=== PATIENT | female | born 1955 | race Caucasian/White ===

== ENCOUNTER 2021-06-19 16:41 | Inpatient (IN) ==
[2021-06-19] MEDS ORDERED: Pantoprazole 40 MG VIAL IVP ONE (18:24)
[2021-06-19 18:30] LABS: Hematocrit 29.8 % (35.3-44.9); Hemoglobin 10.1 g/dL (11.5-15.4); Mean Corpuscular HGB Conc 33.9 g/dL (31.6-35.5); Mean Corpuscular Hemoglobin 34.9 pg (28.0-33.3); Mean Corpuscular Volume 103.1 fL (83.0-100.0); Mean Platelet Volume 10.9 fL (9.4-12.4); Platelet Count 171 K/mcL (140-400); Red Blood Count 2.89 M/mcL (3.82-4.97); Red Cell Distribution Width 15.3 % (11.5-14.5); White Blood Count 14.5 K/mcL (4.3-11.1)
[2021-06-19] MEDS ORDERED: Morphine Sulfate 2 MG/ML SYRINGE IVP ONE (18:37)
[2021-06-19] MEDS ORDERED: 0.9 % Sodium Chloride 1,000 ML IVC SCH (18:45)
[2021-06-19 18:50] LABS: Alanine Aminotransferase 30 Units/L (7-52); Albumin 2.8 g/dL (3.5-5.7); Albumin/Globulin Ratio 0.9 (1.1-2.2); Alkaline Phosphatase 61 Units/L (34-104); Aspartate Amino Transferase 38 Units/L (13-39); BUN/Creatinine Ratio 51 (6-26); Bilirubin,Direct 0.3 mg/dL (0.0-0.2); Bilirubin,Indirect 0.8 mg/dL (0.0-1.0); Bilirubin,Total 1.1 mg/dL (0.3-1.0); Blood Urea Nitrogen 43 mg/dL (8-23); Calcium 8.7 mg/dL (8.6-10.3); Carbon Dioxide 24 mEq/L (23-29); Chloride 105 mEq/L (98-107); Globulin 3.2 g/dL (2.4-3.5); Glucose 127 mg/dL (70-105); Lipase 23 Units/L (11-82); Osmolality,Calculated 294 (280-300); Potassium 4.4 mEq/L (3.5-5.1); Sodium 136 mEq/L (136-145); eGFR For African Americans > 60 (> 60); eGFR For Non-African Americans > 60 (> 60)
[2021-06-19 19:09] LABS: Prothrombin Time 21.8 Seconds (9.4-12.1)
[2021-06-19] MEDS ORDERED: cefTRIAXone 1,000 MG in Water for inj. (sterile) 10 ML IVP ONE (19:21)
[2021-06-19] MEDS ORDERED: *HR* Phytonadione 5 MG TABLET PO ONE (19:26)
[2021-06-19] MEDS ORDERED: 0.9 % Sodium Chloride 1,000 ML IVC ONE (19:33)
[2021-06-19] MEDS ORDERED: Acetaminophen 325 MG TABLET PO PRN (19:49)
[2021-06-19] MEDS ORDERED: Naloxone 0.4 MG/ML INJ IVP PRN (19:49)
[2021-06-19] MEDS ORDERED: *HR* HYDROcodone/Acet 5/325 mg TABLET PO PRN (19:49)
[2021-06-19] MEDS ORDERED: Melatonin 3 MG TABLET PO PRN (19:49)
[2021-06-19] MEDS ORDERED: Ondansetron 4 MG/2 ML VIAL IVP PRN (19:49)
[2021-06-19] MEDS ORDERED: Ringers Solution, Lactated 1,000 ML IVC ONE (19:55)
[2021-06-19] MEDS: Octreotide 400 MCG in 0.9 % Sodium Chloride 100 ML IVC SCH (21:23)
[2021-06-19] MEDS: Pantoprazole 40 MG in 0.9 % Sodium Chloride Mini Bag 100 ML IVC SCH (22:33)
[2021-06-19] MEDS ORDERED: 0.9 % Sodium Chloride 1,000 ML ONE (23:52)
[2021-06-20] MEDS ORDERED: Ringers Solution, Lactated 1,000 ML IVC ONE (00:02)
[2021-06-20 02:02] LABS: Basophils % 0.1 %; Eosinophils % 0.1 %; Hematocrit 21.7 % (35.3-44.9); Immature Granulocytes % 0.9 % (0-4); Lymphocytes # 1.7 K/mcL (0.6-4.6); Lymphocytes % 11.4 %; Mean Corpuscular HGB Conc 31.3 g/dL (31.6-35.5); Mean Corpuscular Volume 108.5 fL (83.0-100.0); Mean Platelet Volume 11.9 fL (9.4-12.4); Monocytes # 1.7 K/mcL (0.0-1.3); Monocytes % 11.7 %; Neutrophils # 11.3 K/mcL (1.6-8.9); Nucleated Red Blood Cells 0.1 /100 WBC (0); Platelet Count 132 K/mcL (140-400); Red Cell Distribution Width 15.9 % (11.5-14.5); Segmented Neutrophils % 75.8 %; White Blood Count 14.8 K/mcL (4.3-11.1)
[2021-06-20 02:07] LABS: INR 2.2
[2021-06-20 02:18] LABS: Hemoglobin 6.8 g/dL (11.5-15.4)
[2021-06-20 02:26] LABS: Alanine Aminotransferase 24 Units/L (7-52); Albumin 1.9 g/dL (3.5-5.7); Albumin/Globulin Ratio 0.8 (1.1-2.2); Alkaline Phosphatase 35 Units/L (34-104); Aspartate Amino Transferase 34 Units/L (13-39); BUN/Creatinine Ratio 54 (6-26); Bilirubin,Total 0.8 mg/dL (0.3-1.0); Blood Urea Nitrogen 43 mg/dL (8-23); Calcium 7.3 mg/dL (8.6-10.3); Carbon Dioxide 19 mEq/L (23-29); Chloride 113 mEq/L (98-107); Globulin 2.3 g/dL (2.4-3.5); Glucose 112 mg/dL (70-105); Iron 88 mcg/dL (50-170); Osmolality,Calculated 298 (280-300); Potassium 5.3 mEq/L (3.5-5.1); Sodium 138 mEq/L (136-145); Total Protein 4.2 g/dL (6.4-8.9); eGFR For African Americans > 60 (> 60); eGFR For Non-African Americans > 60 (> 60)
[2021-06-20] MEDS ORDERED: 0.9 % Sodium Chloride 250 ML IVC SCH (02:30)
[2021-06-20 02:33] LABS: Ferritin 45 ng/mL (10-120)
[2021-06-20 02:54] LABS: Folate 10.6 ng/mL (3.0-16.0)
[2021-06-20] MEDS ORDERED: Ringers Solution, Lactated 500 ML IVC ONE (03:00)
[2021-06-20] MEDS ORDERED: *HR* Dextrose 50 % in Water (Syg) 50 ML SYRINGE IVP ONE (03:44)
[2021-06-20] MEDS ORDERED: Insulin Human Regular 10 UNIT in 0.9 % Sodium Chloride 10 ML IV ONE (03:44)
[2021-06-20 04:11] LABS: % Iron Saturation 35 % (15-50); Transferrin 179 mg/dL (203-362)
[2021-06-20] MEDS ORDERED: 0.9 % Sodium Chloride 1,000 ML ONE (04:13)
[2021-06-20] MEDS ORDERED: 0.9 % Sodium Chloride 1,000 ML IVC ONE (04:14)
[2021-06-20] MEDS: Norepinephrine 4 MG/254 ML IV.SOLN IVC SCH ×4 (04:27→23:18)
[2021-06-20] MEDS ORDERED: *HR* Propofol 200 MG/20 ML VIAL IVP ONE (06:14)
[2021-06-20] MEDS ORDERED: EPHEDrine 50 MG/ML VIAL ONE (06:16)
[2021-06-20] MEDS ORDERED: Albumin Human 5% 25.0 GM/500 ML IV.SOLN ONE (06:45)
[2021-06-20] MEDS ORDERED: *HR* Midazolam HCl 2 MG/2 ML VIAL IVP ONE (07:25)
[2021-06-20] MEDS ORDERED: Levalbuterol Neb 1.25 MG/3 ML IH ONE (07:28)
[2021-06-20] MEDS ORDERED: *HR* FentaNYL (PF) 100 MCG/2 ML VIAL IVP PRN (07:29)
[2021-06-20] MEDS ORDERED: Ipratropium Neb 0.5 MG NEBULIZER IH ONE (07:30)
[2021-06-20] MEDS ORDERED: *HR* FentaNYL (PF) 100 MCG/2 ML VIAL ONE (07:30)
[2021-06-20] MEDS ORDERED: Heparin 1,000 UNITS/500 mL 500 ML ONE (07:35)
[2021-06-20 07:42] LABS: ABG Base Excess -7 mEq/L (-2 to 3); ABG HCO3 19 mEq/L (21-27); ABG Oxygen Saturation 87 % (95-98); ABG PCO2 41 mmHg (35-45); ABG PH 7.28 pH Units (7.32-7.45); ABG PO2 59 mmHg (85-104); ABG TCO2 20 mEq/L (20-26)
[2021-06-20] MEDS ORDERED: Albumin Human 5% 12.5 GM/250 ML IV.SOLN ONE (07:48)
[2021-06-20] MEDS ORDERED: *HR* Etomidate 40 MG/20 ML VIAL IVP ONE (07:48)
[2021-06-20] MEDS ORDERED: *HR* Succinylcholine 200 MG/10 ML VIAL IVP ONE (07:48)
[2021-06-20] MEDS ORDERED: Ringers Solution, Lactated 1,000 ML ONE (08:13)
[2021-06-20 08:22] LABS: BUN/Creatinine Ratio 53 (6-26); Blood Urea Nitrogen 41 mg/dL (8-23); Calcium 7.1 mg/dL (8.6-10.3); Carbon Dioxide 20 mEq/L (23-29); Chloride 113 mEq/L (98-107); Glucose 143 mg/dL (70-105); Osmolality,Calculated 301 (280-300); Potassium 4.4 mEq/L (3.5-5.1); Sodium 139 mEq/L (136-145); eGFR For African Americans > 60 (> 60); eGFR For Non-African Americans > 60 (> 60)
[2021-06-20 08:37] LABS: ABG Base Excess -5 mEq/L (-2 to 3); ABG HCO3 22 mEq/L (21-27); ABG Oxygen Saturation 100 % (95-98); ABG PCO2 52 mmHg (35-45); ABG PH 7.24 pH Units (7.32-7.45); ABG PO2 387 mmHg (85-104); ABG TCO2 24 mEq/L (20-26)
[2021-06-20] MEDS ORDERED: Artificial Tears SOLN 15 ML BOTTLE BOTH EYES PRN (08:48)
[2021-06-20 09:03] LABS: Basophils % 0.2 %; Immature Granulocytes % 1.6 % (0-4); Nucleated Red Blood Cells 0.3 /100 WBC (0); Platelet Count 123 K/mcL (140-400)
[2021-06-20 09:05] LABS: Eosinophils % 0.2 %; Hematocrit 21.3 % (35.3-44.9); Hemoglobin 7.3 g/dL (11.5-15.4); Immature Platelets 6.4 % (1.1-6.1); Lymphocytes # 1.9 K/mcL (0.6-4.6); Lymphocytes % 9.9 %; Mean Corpuscular HGB Conc 34.3 g/dL (31.6-35.5); Mean Corpuscular Volume 99.1 fL (83.0-100.0); Mean Platelet Volume 11.9 fL (9.4-12.4); Monocytes # 2.5 K/mcL (0.0-1.3); Monocytes % 13.3 %; Neutrophils # 14.1 K/mcL (1.6-8.9); Red Blood Count 2.15 M/mcL (3.82-4.97); Red Cell Distribution Width 15.8 % (11.5-14.5); Segmented Neutrophils % 74.8 %; White Blood Count 18.8 K/mcL (4.3-11.1)
[2021-06-20 09:21] LABS: Alanine Aminotransferase 28 Units/L (7-52); Albumin 2.6 g/dL (3.5-5.7); Albumin/Globulin Ratio 1.2 (1.1-2.2); Alkaline Phosphatase 42 Units/L (34-104); Aspartate Amino Transferase 40 Units/L (13-39); Bilirubin,Direct 0.2 mg/dL (0.0-0.2); Bilirubin,Indirect 0.6 mg/dL (0.0-1.0); Bilirubin,Total 0.8 mg/dL (0.3-1.0); Globulin 2.1 g/dL (2.4-3.5); Total Protein 4.7 g/dL (6.4-8.9)
[2021-06-20] MEDS: Ipratropium/Albuterol Neb 3 ML IH PRN (10:09)
[2021-06-20] MEDS ORDERED: FentaNYL (PF) 1,000 MCG/100 ML IV.SOLN IVC SCH (10:15)
[2021-06-20] MEDS: Pantoprazole 40 MG in 0.9 % Sodium Chloride Mini Bag 100 ML IVC SCH ×4 (10:42→19:39)
[2021-06-20] MEDS: Octreotide 400 MCG in 0.9 % Sodium Chloride 100 ML IVC SCH ×2 (10:49→17:00)
[2021-06-20] MEDS: cefTRIAXone 1,000 MG in 0.9 % Sodium Chloride Mini Bag 100 ML IVP SCH (11:45)
[2021-06-20] MEDS: Chlorhexidine Rinse 15 ML MOUTHWASH MM SCH ×2 (11:52→19:39)
[2021-06-20] MEDS ORDERED: Dexmedetomidine HCl 400 MCG/100 ML MLS IVC SCH (13:45)
[2021-06-20 14:58] LABS: Hematocrit 19.5 % (35.3-44.9); Hemoglobin 6.6 g/dL (11.5-15.4)
[2021-06-20] MEDS: Artificial Tears SOLN 15 ML BOTTLE BOTH EYES SCH ×3 (15:25→21:47)
[2021-06-20] MEDS: Albumin Human 5% 12.5 GM/250 ML IV.SOLN IVC SCH ×2 (16:55→21:37)
[2021-06-20] MEDS: Dexmedetomidine HCl 400 MCG/100 ML MLS IVC SCH ×3 (18:20→23:44)
[2021-06-20 20:50] LABS: Hematocrit 24.8 % (35.3-44.9)
[2021-06-20 20:51] LABS: Hemoglobin 8.2 g/dL (11.5-15.4)
[2021-06-20 20:53] LABS: VBG Ionized Calcium 1.12 mmol/L (1.15-1.35)
[2021-06-20 21:11] LABS: BUN/Creatinine Ratio 42 (6-26); Blood Urea Nitrogen 33 mg/dL (8-23); Calcium 7.4 mg/dL (8.6-10.3); Carbon Dioxide 26 mEq/L (23-29); Chloride 113 mEq/L (98-107); Glucose 150 mg/dL (70-105); Magnesium 1.5 mg/dL (1.6-2.6); Osmolality,Calculated 306 (280-300); Phosphorous 1.9 mg/dL (2.7-4.5); Potassium 4.5 mEq/L (3.5-5.1); Sodium 143 mEq/L (136-145); eGFR For African Americans > 60 (> 60); eGFR For Non-African Americans > 60 (> 60)
[2021-06-21] MEDS: Pantoprazole 40 MG in 0.9 % Sodium Chloride Mini Bag 100 ML IVC SCH ×5 (00:50→22:09)
[2021-06-21] MEDS: Octreotide 400 MCG in 0.9 % Sodium Chloride 100 ML IVC SCH ×3 (00:51→18:16)
[2021-06-21] MEDS: Artificial Tears SOLN 15 ML BOTTLE BOTH EYES SCH ×7 (00:52→23:13)
[2021-06-21] MEDS: Norepinephrine 4 MG/254 ML IV.SOLN IVC SCH ×8 (01:51→22:08)
[2021-06-21 02:19] LABS: VBG Ionized Calcium 1.09 mmol/L (1.15-1.35)
[2021-06-21 02:35] LABS: BUN/Creatinine Ratio 38 (6-26); Blood Urea Nitrogen 29 mg/dL (8-23); Calcium 7.4 mg/dL (8.6-10.3); Carbon Dioxide 23 mEq/L (23-29); Chloride 114 mEq/L (98-107); Glucose 149 mg/dL (70-105); Osmolality,Calculated 303 (280-300); Phosphorous 2.7 mg/dL (2.7-4.5); Potassium 3.9 mEq/L (3.5-5.1); Sodium 142 mEq/L (136-145); eGFR For African Americans > 60 (> 60); eGFR For Non-African Americans > 60 (> 60)
[2021-06-21 02:42] LABS: Basophils # 0.1 K/mcL (0.0-0.2); Basophils % 0.4 %; Eosinophils # 0.3 K/mcL (0.0-0.6); Eosinophils % 1.2 %; Hematocrit 24.3 % (35.3-44.9); Hemoglobin 8.1 g/dL (11.5-15.4); Lymphocytes # 2.2 K/mcL (0.6-4.6); Lymphocytes % 9.7 %; Mean Corpuscular HGB Conc 33.3 g/dL (31.6-35.5); Mean Corpuscular Hemoglobin 33.9 pg (28.0-33.3); Mean Corpuscular Volume 101.7 fL (83.0-100.0); Monocytes # 2.4 K/mcL (0.0-1.3); Monocytes % 10.4 %; Neutrophils # 17.7 K/mcL (1.6-8.9); Nucleated Red Blood Cells 0.2 /100 WBC (0); Platelet Count 158 K/mcL (140-400); Red Blood Count 2.39 M/mcL (3.82-4.97); Red Cell Distribution Width 15.9 % (11.5-14.5); Segmented Neutrophils % 77.3 %
[2021-06-21] MEDS: Calcium Gluconate 1gm/50mL 1 GM/50 ML BAG IVPB SCH ×2 (03:08→03:36)
[2021-06-21] MEDS: Albumin Human 5% 12.5 GM/250 ML IV.SOLN IVC SCH ×4 (04:53→12:40)
[2021-06-21] MEDS: Dexmedetomidine HCl 400 MCG/100 ML MLS IVC SCH ×4 (04:53→23:47)
[2021-06-21] MEDS ORDERED: Lactulose 200 GM, Sodium Chloride IRRigation 700 ML RC ONE (06:30)
[2021-06-21] MEDS: Chlorhexidine Rinse 15 ML MOUTHWASH MM SCH ×2 (09:31→21:39)
[2021-06-21] MEDS: cefTRIAXone 1,000 MG in 0.9 % Sodium Chloride Mini Bag 100 ML IVP SCH (09:32)
[2021-06-21] MEDS ORDERED: Norepinephrine 4 MG/254 ML IV.SOLN IVC ONE (10:15)
[2021-06-21] MEDS ORDERED: FentaNYL (PF) 1,000 MCG/100 ML IV.SOLN ONE (10:15)
[2021-06-21] MEDS: FentaNYL (PF) 1,000 MCG/100 ML IV.SOLN IVC SCH ×2 (11:16→18:46)
[2021-06-21] MEDS: Phenylephrine 50 MG in 0.9 % Sodium Chloride 250 ML IVC SCH (11:26)
[2021-06-21 11:29] LABS: ABG Base Excess -2 mEq/L (-2 to 3); ABG HCO3 25 mEq/L (21-27); ABG Oxygen Saturation 100 % (95-98); ABG PCO2 49 mmHg (35-45); ABG PH 7.31 pH Units (7.32-7.45); ABG PO2 184 mmHg (85-104); ABG TCO2 26 mEq/L (20-26); Blood Gas Modality ASSIST CONTROL; Blood Gas VT 400 cc
[2021-06-21 14:47] LABS: Hematocrit 22.5 % (35.3-44.9); Hemoglobin 7.5 g/dL (11.5-15.4); Mean Corpuscular HGB Conc 33.3 g/dL (31.6-35.5); Mean Corpuscular Hemoglobin 34.2 pg (28.0-33.3); Mean Corpuscular Volume 102.7 fL (83.0-100.0); Mean Platelet Volume 10.9 fL (9.4-12.4); Nucleated Red Blood Cells 0.4 /100 WBC (0); Platelet Count 113 K/mcL (140-400); Red Blood Count 2.19 M/mcL (3.82-4.97); Red Cell Distribution Width 16.4 % (11.5-14.5); White Blood Count 24.9 K/mcL (4.3-11.1)
[2021-06-21 15:33] LABS: Neutrophils # 18.9 K/mcL (1.6-8.9); Platelet Estimate Decreased (Normal)
[2021-06-21] MEDS ORDERED: 0.9 % Sodium Chloride 500 ML ONE (15:44)
[2021-06-21] MEDS ORDERED: Acetaminophen IV 1,000 MG/100 ML BAG IVPB ONE (19:39)
[2021-06-21] MEDS: Piperacillin/Tazobactam 3.375 GM in 0.9 % Sodium Chloride Mini Bag 100 ML IVPB SCH ×2 (19:55→23:39)
[2021-06-21 20:17] LABS: Basophils % 0.2 %; Eosinophils # 0.2 K/mcL (0.0-0.6); Eosinophils % 0.8 %; Hemoglobin 7.3 g/dL (11.5-15.4); Immature Granulocytes % 0.6 % (0-4); Lymphocytes % 10.2 %; Mean Corpuscular HGB Conc 33.2 g/dL (31.6-35.5); Mean Corpuscular Volume 102.3 fL (83.0-100.0); Mean Platelet Volume 11.1 fL (9.4-12.4); Monocytes # 2.4 K/mcL (0.0-1.3); Monocytes % 12.2 %; Neutrophils # 14.9 K/mcL (1.6-8.9); Nucleated Red Blood Cells 0.4 /100 WBC (0); Platelet Count 101 K/mcL (140-400); Red Blood Count 2.15 M/mcL (3.82-4.97); Red Cell Distribution Width 16.6 % (11.5-14.5); White Blood Count 19.6 K/mcL (4.3-11.1)
[2021-06-21] MEDS ORDERED: *HR* Etomidate 20 MG/10 ML AMPUL IVP ONE (20:45)
[2021-06-21] MEDS ORDERED: *HR* Rocuronium Bromide 50 MG/5 ML VIAL IVP ONE (20:45)
[2021-06-21] MEDS ORDERED: *HR* Midazolam HCl 5 MG/5 ML VIAL IVP ONE (20:45)
[2021-06-22] MEDS: Norepinephrine 4 MG/254 ML IV.SOLN IVC SCH ×6 (00:18→19:22)
[2021-06-22] MEDS: FentaNYL (PF) 1,000 MCG/100 ML IV.SOLN IVC SCH ×4 (01:57→22:15)
[2021-06-22] MEDS: Octreotide 400 MCG in 0.9 % Sodium Chloride 100 ML IVC SCH ×3 (02:00→19:19)
[2021-06-22 02:34] LABS: Basophils % 0.2 %; Eosinophils # 0.1 K/mcL (0.0-0.6); Eosinophils % 0.6 %; Hematocrit 22.1 % (35.3-44.9); Hemoglobin 7.2 g/dL (11.5-15.4); Immature Granulocytes % 0.4 % (0-4); Lymphocytes # 1.5 K/mcL (0.6-4.6); Lymphocytes % 9.4 %; Mean Corpuscular HGB Conc 32.6 g/dL (31.6-35.5); Mean Corpuscular Hemoglobin 34.6 pg (28.0-33.3); Mean Corpuscular Volume 106.3 fL (83.0-100.0); Monocytes # 2.3 K/mcL (0.0-1.3); Monocytes % 14.1 %; Neutrophils # 12.1 K/mcL (1.6-8.9); Nucleated Red Blood Cells 0.2 /100 WBC (0); Platelet Count 104 K/mcL (140-400); Red Blood Count 2.08 M/mcL (3.82-4.97); Red Cell Distribution Width 16.9 % (11.5-14.5); Segmented Neutrophils % 75.3 %
[2021-06-22 02:49] LABS: Alanine Aminotransferase 32 Units/L (7-52); Albumin 2.9 g/dL (3.5-5.7); Albumin/Globulin Ratio 1.5 (1.1-2.2); Alkaline Phosphatase 42 Units/L (34-104); Aspartate Amino Transferase 55 Units/L (13-39); BUN/Creatinine Ratio 30 (6-26); Blood Urea Nitrogen 30 mg/dL (8-23); Carbon Dioxide 21 mEq/L (23-29); Chloride 120 mEq/L (98-107); Globulin 1.9 g/dL (2.4-3.5); Glucose 150 mg/dL (70-105); Osmolality,Calculated 311 (280-300); Phosphorous 2.4 mg/dL (2.7-4.5); Potassium 3.5 mEq/L (3.5-5.1); Sodium 146 mEq/L (136-145); Total Protein 4.8 g/dL (6.4-8.9); eGFR For African Americans > 60 (> 60); eGFR For Non-African Americans 55 (> 60)
[2021-06-22] MEDS: Artificial Tears SOLN 15 ML BOTTLE BOTH EYES SCH ×6 (03:04→23:07)
[2021-06-22] MEDS: Pantoprazole 40 MG in 0.9 % Sodium Chloride Mini Bag 100 ML IVC SCH ×5 (03:04→23:11)
[2021-06-22] MEDS: Dexmedetomidine HCl 400 MCG/100 ML MLS IVC SCH ×5 (04:00→21:00)
[2021-06-22 05:18] LABS: ABG Base Excess -5 mEq/L (-2 to 3); ABG HCO3 19 mEq/L (21-27); ABG Oxygen Saturation 96 % (95-98); ABG PCO2 29 mmHg (35-45); ABG PH 7.42 pH Units (7.32-7.45); ABG PO2 78 mmHg (85-104); ABG TCO2 20 mEq/L (20-26); Blood Gas VT 400 cc
[2021-06-22] MEDS ORDERED: Lactulose 200 GM, Sodium Chloride IRRigation 700 ML RC ONE (05:30)
[2021-06-22] MEDS: Chlorhexidine Rinse 15 ML MOUTHWASH MM SCH ×2 (08:03→20:04)
[2021-06-22] MEDS: Piperacillin/Tazobactam 3.375 GM in 0.9 % Sodium Chloride Mini Bag 100 ML IVPB SCH ×3 (08:03→23:07)
[2021-06-22 10:10] LABS: Hematocrit 22.2 % (35.3-44.9); Hemoglobin 7.3 g/dL (11.5-15.4); Mean Corpuscular HGB Conc 32.9 g/dL (31.6-35.5); Mean Corpuscular Hemoglobin 34.4 pg (28.0-33.3); Mean Corpuscular Volume 104.7 fL (83.0-100.0); Mean Platelet Volume 10.8 fL (9.4-12.4); Platelet Count 102 K/mcL (140-400); Red Blood Count 2.12 M/mcL (3.82-4.97); Red Cell Distribution Width 17.2 % (11.5-14.5); White Blood Count 15.4 K/mcL (4.3-11.1)
[2021-06-22 10:48] LABS: Lymphocytes # 1.5 K/mcL (0.6-4.6); Monocytes # 0.9 K/mcL (0.0-1.3); Neutrophils # 12.6 K/mcL (1.6-8.9); Platelet Estimate Slight Decrease (Normal)
[2021-06-22] MEDS: Levothyroxine Sodium 100 MCG VIAL IVP SCH (11:45)
[2021-06-22] MEDS: Ipratropium/Albuterol Neb 3 ML IH SCH ×3 (12:05→21:11)
[2021-06-22] MEDS: D5% in Water 1,000 ML IVC SCH ×2 (14:37→19:29)
[2021-06-22] MEDS: Albumin 25% 25gram/100mL 25 GM/100 ML IV.SOLN IVPB SCH ×2 (15:54→23:06)
[2021-06-22] MEDS: Phenylephrine 50 MG in 0.9 % Sodium Chloride 250 ML IVC SCH (19:17)
[2021-06-23] MEDS: D5% in Water 1,000 ML IVC SCH ×3 (00:36→20:55)
[2021-06-23] MEDS: Dexmedetomidine HCl 400 MCG/100 ML MLS IVC SCH ×6 (00:37→22:07)
[2021-06-23] MEDS: Octreotide 400 MCG in 0.9 % Sodium Chloride 100 ML IVC SCH (01:05)
[2021-06-23] MEDS: Artificial Tears SOLN 15 ML BOTTLE BOTH EYES SCH ×5 (03:13→20:55)
[2021-06-23] MEDS: Norepinephrine 4 MG/254 ML IV.SOLN IVC SCH ×3 (03:29→18:43)
[2021-06-23 03:31] LABS: VBG Ionized Calcium 1.05 mmol/L (1.15-1.35)
[2021-06-23 03:45] LABS: Alanine Aminotransferase 26 Units/L (7-52); Albumin 3.3 g/dL (3.5-5.7); Albumin/Globulin Ratio 1.7 (1.1-2.2); Alkaline Phosphatase 41 Units/L (34-104); Aspartate Amino Transferase 34 Units/L (13-39); BUN/Creatinine Ratio 38 (6-26); Bilirubin,Direct 0.6 mg/dL (0.0-0.2); Bilirubin,Indirect 0.6 mg/dL (0.0-1.0); Bilirubin,Total 1.2 mg/dL (0.3-1.0); Blood Urea Nitrogen 29 mg/dL (8-23); Calcium 6.6 mg/dL (8.6-10.3); Carbon Dioxide 19 mEq/L (23-29); Chloride 116 mEq/L (98-107); Globulin 1.9 g/dL (2.4-3.5); Glucose 221 mg/dL (70-105); Osmolality,Calculated 305 (280-300); Phosphorous 1.8 mg/dL (2.7-4.5); Potassium 3.7 mEq/L (3.5-5.1); Sodium 141 mEq/L (136-145); Total Protein 5.2 g/dL (6.4-8.9); eGFR For African Americans > 60 (> 60); eGFR For Non-African Americans > 60 (> 60)
[2021-06-23] MEDS: Calcium Gluconate 1gm/50mL 1 GM/50 ML BAG IVPB SCH ×2 (04:00→04:36)
[2021-06-23] MEDS: Pantoprazole 40 MG in 0.9 % Sodium Chloride Mini Bag 100 ML IVC SCH ×5 (04:02→22:42)
[2021-06-23] MEDS: FentaNYL (PF) 1,000 MCG/100 ML IV.SOLN IVC SCH ×4 (04:06→22:41)
[2021-06-23] MEDS: Ipratropium/Albuterol Neb 3 ML IH SCH ×4 (04:40→20:07)
[2021-06-23 05:12] LABS: ABG Base Excess -8 mEq/L (-2 to 3); ABG HCO3 19 mEq/L (21-27); ABG Oxygen Saturation 90 % (95-98); ABG PCO2 50 mmHg (35-45); ABG PH 7.19 pH Units (7.32-7.45); ABG PO2 72 mmHg (85-104); ABG TCO2 21 mEq/L (20-26); Blood Gas Modality ASSIST CONTROL; Blood Gas VT 400 cc
[2021-06-23 06:36] LABS: Red Cell Distribution Width 18.2 % (11.5-14.5)
[2021-06-23 06:38] LABS: Basophils % 0.1 %; Eosinophils # 0.1 K/mcL (0.0-0.6); Eosinophils % 0.6 %; Hematocrit 21.9 % (35.3-44.9); Hemoglobin 6.9 g/dL (11.5-15.4); Immature Granulocytes % 0.6 % (0-4); Immature Platelets 10.5 % (1.1-6.1); Lymphocytes # 1.2 K/mcL (0.6-4.6); Lymphocytes % 8.4 %; Mean Corpuscular HGB Conc 31.5 g/dL (31.6-35.5); Mean Corpuscular Hemoglobin 35.2 pg (28.0-33.3); Mean Corpuscular Volume 111.7 fL (83.0-100.0); Mean Platelet Volume 12.1 fL (9.4-12.4); Monocytes # 1.2 K/mcL (0.0-1.3); Monocytes % 8.3 %; Neutrophils # 11.8 K/mcL (1.6-8.9); Nucleated Red Blood Cells 0.2 /100 WBC (0); Red Blood Count 1.96 M/mcL (3.82-4.97); White Blood Count 14.4 K/mcL (4.3-11.1)
[2021-06-23 06:47] LABS: Platelet Count 98 K/mcL (140-400)
[2021-06-23 07:36] LABS: ABG Base Excess -7 mEq/L (-2 to 3); ABG HCO3 20 mEq/L (21-27); ABG Oxygen Saturation 93 % (95-98); ABG PCO2 48 mmHg (35-45); ABG PH 7.22 pH Units (7.32-7.45); ABG PO2 79 mmHg (85-104); ABG TCO2 21 mEq/L (20-26); Blood Gas VT 400 cc
[2021-06-23] MEDS: Levothyroxine Sodium 100 MCG VIAL IVP SCH (07:38)
[2021-06-23] MEDS: Chlorhexidine Rinse 15 ML MOUTHWASH MM SCH ×2 (07:38→20:54)
[2021-06-23] MEDS: Piperacillin/Tazobactam 3.375 GM in 0.9 % Sodium Chloride Mini Bag 100 ML IVPB SCH ×2 (07:39→15:04)
[2021-06-23] MEDS: Albumin 25% 25gram/100mL 25 GM/100 ML IV.SOLN IVPB SCH ×2 (07:40→15:05)
[2021-06-23] MEDS: Phenylephrine 50 MG in 0.9 % Sodium Chloride 250 ML IVC SCH (11:47)
[2021-06-23 16:11] LABS: Hematocrit 21.7 % (35.3-44.9); Hemoglobin 7.1 g/dL (11.5-15.4)
[2021-06-23 21:14] LABS: Hematocrit 21.9 % (35.3-44.9); Hemoglobin 6.9 g/dL (11.5-15.4)
[2021-06-23] MEDS ORDERED: 0.9 % Sodium Chloride 250 ML IVC SCH (22:00)
[2021-06-24] MEDS: Piperacillin/Tazobactam 3.375 GM in 0.9 % Sodium Chloride Mini Bag 100 ML IVPB SCH ×3 (00:25→15:49)
[2021-06-24] MEDS: Artificial Tears SOLN 15 ML BOTTLE BOTH EYES SCH ×6 (00:25→21:58)
[2021-06-24] MEDS: Dexmedetomidine HCl 400 MCG/100 ML MLS IVC SCH ×5 (02:24→21:46)
[2021-06-24] MEDS: Albumin 25% 25gram/100mL 25 GM/100 ML IV.SOLN IVPB SCH ×2 (02:28→08:51)
[2021-06-24] MEDS: Ipratropium/Albuterol Neb 3 ML IH SCH ×4 (03:28→20:11)
[2021-06-24] MEDS: FentaNYL (PF) 1,000 MCG/100 ML IV.SOLN IVC SCH ×4 (03:30→23:37)
[2021-06-24 04:00] LABS: Hemoglobin 7.8 g/dL (11.5-15.4); Mean Platelet Volume 10.8 fL (9.4-12.4)
[2021-06-24] MEDS: Pantoprazole 40 MG in 0.9 % Sodium Chloride Mini Bag 100 ML IVC SCH ×2 (04:01→08:53)
[2021-06-24 04:02] LABS: Hematocrit 24.9 % (35.3-44.9); Immature Platelets 7.8 % (1.1-6.1); Mean Corpuscular HGB Conc 31.3 g/dL (31.6-35.5); Mean Corpuscular Hemoglobin 31.6 pg (28.0-33.3); Mean Corpuscular Volume 100.8 fL (83.0-100.0); Nucleated Red Blood Cells 0.7 /100 WBC (0); Platelet Count 77 K/mcL (140-400); Red Blood Count 2.47 M/mcL (3.82-4.97); Red Cell Distribution Width 20.9 % (11.5-14.5); White Blood Count 10.7 K/mcL (4.3-11.1)
[2021-06-24 04:10] LABS: BUN/Creatinine Ratio 29 (6-26); Blood Urea Nitrogen 24 mg/dL (8-23); Carbon Dioxide 21 mEq/L (23-29); Chloride 110 mEq/L (98-107); Glucose 209 mg/dL (70-105); Osmolality,Calculated 296 (280-300); Potassium 3.9 mEq/L (3.5-5.1); Sodium 138 mEq/L (136-145); eGFR For African Americans > 60 (> 60); eGFR For Non-African Americans > 60 (> 60)
[2021-06-24 04:33] LABS: ABG Base Excess -6 mEq/L (-2 to 3); ABG HCO3 21 mEq/L (21-27); ABG Oxygen Saturation 93 % (95-98); ABG PCO2 46 mmHg (35-45); ABG PH 7.26 pH Units (7.32-7.45); ABG PO2 77 mmHg (85-104); ABG TCO2 22 mEq/L (20-26); Blood Gas VT 400 cc
[2021-06-24 04:47] LABS: Lymphocytes # 1.7 K/mcL (0.6-4.6); Monocytes # 0.9 K/mcL (0.0-1.3); Neutrophils # 8.1 K/mcL (1.6-8.9)
[2021-06-24 04:48] LABS: Platelet Estimate Decreased (Normal)
[2021-06-24] MEDS ORDERED: Calcium Gluconate 1gm/50mL 1 GM/50 ML BAG IVPB ONE (06:48)
[2021-06-24] MEDS: Norepinephrine 4 MG/254 ML IV.SOLN IVC SCH ×2 (08:50→21:45)
[2021-06-24] MEDS: Levothyroxine Sodium 100 MCG VIAL IVP SCH (08:51)
[2021-06-24] MEDS: D5% in Water 1,000 ML IVC SCH (08:51)
[2021-06-24] MEDS: Chlorhexidine Rinse 15 ML MOUTHWASH MM SCH ×2 (08:52→21:59)
[2021-06-24] MEDS: Phenylephrine 50 MG in 0.9 % Sodium Chloride 250 ML IVC SCH (09:28)
[2021-06-24] MEDS: Octreotide 400 MCG in 0.9 % Sodium Chloride 100 ML IVC SCH ×2 (09:34→12:11)
[2021-06-24 15:48] LABS: Hematocrit 24.6 % (35.3-44.9); Hemoglobin 7.8 g/dL (11.5-15.4)
[2021-06-24] MEDS ORDERED: *HR* Midazolam HCl 5 MG/5 ML VIAL IVP ONE ×2 (16:42→20:35)
[2021-06-24] MEDS ORDERED: *HR* Midazolam HCl 2 MG/2 ML VIAL IVP ONE (16:50)
[2021-06-24] MEDS: Pantoprazole 40 MG VIAL IVP SCH (18:22)
[2021-06-24 19:23] LABS: Hematocrit 25.5 % (35.3-44.9); Hemoglobin 7.8 g/dL (11.5-15.4); Mean Corpuscular HGB Conc 30.6 g/dL (31.6-35.5); Mean Corpuscular Hemoglobin 31.5 pg (28.0-33.3); Mean Platelet Volume 11.3 fL (9.4-12.4); Red Blood Count 2.48 M/mcL (3.82-4.97); Red Cell Distribution Width 21.1 % (11.5-14.5)
[2021-06-24 19:24] LABS: Mean Corpuscular Volume 102.8 fL (83.0-100.0); Platelet Count 93 K/mcL (140-400)
[2021-06-24] MEDS ORDERED: Furosemide 40 MG/4 ML VIAL IVP ONE (19:39)
[2021-06-24 20:23] LABS: ABG Base Excess -5 mEq/L (-2 to 3); ABG HCO3 25 mEq/L (21-27); ABG Oxygen Saturation 71 % (95-98); ABG PCO2 77 mmHg (35-45); ABG PH 7.11 pH Units (7.32-7.45); ABG PO2 51 mmHg (85-104); ABG TCO2 27 mEq/L (20-26); Blood Gas VT 400 cc
[2021-06-24] MEDS: Midazolam HCl 50 MG/100 ML IV.SOLN IVC SCH (21:28)
[2021-06-24] MEDS: Cisatracurium 200 MG in 0.9 % Sodium Chloride 180 ML IVC SCH (22:00)
[2021-06-24 22:42] LABS: ABG Base Excess -5 mEq/L (-2 to 3); ABG HCO3 25 mEq/L (21-27); ABG Oxygen Saturation 95 % (95-98); ABG PCO2 74 mmHg (35-45); ABG PH 7.13 pH Units (7.32-7.45); ABG PO2 105 mmHg (85-104); ABG TCO2 27 mEq/L (20-26); Blood Gas VT 400 cc
[2021-06-24] MEDS ORDERED: 0.9 % Sodium Chloride 1,000 ML ONE (22:50)
[2021-06-25 00:03] LABS: Hemoglobin 8.2 g/dL (11.5-15.4)
[2021-06-25 00:05] LABS: Hematocrit 26.9 % (35.3-44.9)
[2021-06-25] MEDS: Artificial Tears SOLN 15 ML BOTTLE BOTH EYES SCH ×6 (00:21→19:32)
[2021-06-25] MEDS: Piperacillin/Tazobactam 3.375 GM in 0.9 % Sodium Chloride Mini Bag 100 ML IVPB SCH ×2 (00:56→07:34)
[2021-06-25 01:46] LABS: ABG Base Excess -5 mEq/L (-2 to 3); ABG HCO3 22 mEq/L (21-27); ABG Oxygen Saturation 89 % (95-98); ABG PCO2 52 mmHg (35-45); ABG PH 7.24 pH Units (7.32-7.45); ABG PO2 68 mmHg (85-104); ABG TCO2 24 mEq/L (20-26); Blood Gas VT 400 cc
[2021-06-25] MEDS: Dexmedetomidine HCl 400 MCG/100 ML MLS IVC SCH ×5 (02:48→20:42)
[2021-06-25] MEDS: FentaNYL (PF) 1,000 MCG/100 ML IV.SOLN IVC SCH ×4 (04:05→19:40)
[2021-06-25] MEDS: Norepinephrine 4 MG/254 ML IV.SOLN IVC SCH ×6 (04:05→19:41)
[2021-06-25] MEDS: Ipratropium/Albuterol Neb 3 ML IH SCH ×4 (04:09→20:27)
[2021-06-25 04:18] LABS: ABG Base Excess -2 mEq/L (-2 to 3); ABG HCO3 24 mEq/L (21-27); ABG Oxygen Saturation 100 % (95-98); ABG PCO2 49 mmHg (35-45); ABG PO2 192 mmHg (85-104); ABG TCO2 26 mEq/L (20-26); Blood Gas VT 400 cc
[2021-06-25 04:39] LABS: Hematocrit 24.9 % (35.3-44.9); Hemoglobin 7.9 g/dL (11.5-15.4); Mean Corpuscular HGB Conc 31.7 g/dL (31.6-35.5); Mean Corpuscular Hemoglobin 32.1 pg (28.0-33.3); Mean Corpuscular Volume 101.2 fL (83.0-100.0); Mean Platelet Volume 11.5 fL (9.4-12.4); Nucleated Red Blood Cells 0.7 /100 WBC (0); Platelet Count 121 K/mcL (140-400); Red Blood Count 2.46 M/mcL (3.82-4.97); White Blood Count 22.6 K/mcL (4.3-11.1)
[2021-06-25 04:57] LABS: Calcium 7.4 mg/dL (8.6-10.3); Potassium 4.3 mEq/L (3.5-5.1)
[2021-06-25 05:21] LABS: Lymphocytes # 2.7 K/mcL (0.6-4.6); Monocytes # 1.4 K/mcL (0.0-1.3); Neutrophils # 18.5 K/mcL (1.6-8.9); Platelet Estimate Slight Decrease (Normal)
[2021-06-25] MEDS: Pantoprazole 40 MG VIAL IVP SCH ×2 (05:58→16:44)
[2021-06-25] MEDS: Chlorhexidine Rinse 15 ML MOUTHWASH MM SCH ×2 (07:33→19:40)
[2021-06-25 08:11] LABS: Magnesium 2.2 mg/dL (1.6-2.6); Phosphorous 2.1 mg/dL (2.7-4.5)
[2021-06-25 09:48] LABS: Albumin 3.4 g/dL (3.5-5.7); Bilirubin,Indirect 1.1 mg/dL (0.0-1.0); Bilirubin,Total 2.1 mg/dL (0.3-1.0); Globulin 1.7 g/dL (2.4-3.5); Magnesium 2.2 mg/dL (1.6-2.6); Total Protein 5.1 g/dL (6.4-8.9)
[2021-06-25] MEDS: Midazolam HCl 50 MG/100 ML IV.SOLN IVC SCH (10:15)
[2021-06-25] MEDS ORDERED: D10% in Water 500 ML IVC PRN (11:15)
[2021-06-25] MEDS: Fat Emulsion 250 ML IVPB SCH (16:44)
[2021-06-25] MEDS ORDERED: Clinimix E 5%-15% SOLUTION 2,000 ML with MVI, adult with vitamin K 10 ML IVC SCH (17:00)
[2021-06-25] MEDS: Insulin LISPRO 300 UNITS/3 ML VIAL SUBQ SCH (22:09)
[2021-06-25] MEDS: Cisatracurium 200 MG in 0.9 % Sodium Chloride 180 ML IVC SCH (22:11)
[2021-06-25] MEDS: Phenylephrine 50 MG in 0.9 % Sodium Chloride 250 ML IVC SCH (23:10)
[2021-06-26 00:24] LABS: Hematocrit 24.4 % (35.3-44.9); Hemoglobin 8.1 g/dL (11.5-15.4)
[2021-06-26] MEDS: Artificial Tears SOLN 15 ML BOTTLE BOTH EYES SCH ×7 (00:36→23:25)
[2021-06-26] MEDS: Insulin LISPRO 300 UNITS/3 ML VIAL SUBQ SCH ×7 (00:38→23:26)
[2021-06-26] MEDS: Dexmedetomidine HCl 400 MCG/100 ML MLS IVC SCH ×3 (00:43→10:19)
[2021-06-26] MEDS: Norepinephrine 4 MG/254 ML IV.SOLN IVC SCH ×4 (00:44→16:52)
[2021-06-26] MEDS: Midazolam HCl 50 MG/100 ML IV.SOLN IVC SCH (00:45)
[2021-06-26] MEDS: FentaNYL (PF) 1,000 MCG/100 ML IV.SOLN IVC SCH ×2 (00:45→05:40)
[2021-06-26] MEDS: Ipratropium/Albuterol Neb 3 ML IH SCH ×4 (03:10→20:22)
[2021-06-26 03:55] LABS: ABG Base Excess -2 mEq/L (-2 to 3); ABG HCO3 24 mEq/L (21-27); ABG Oxygen Saturation 88 % (95-98); ABG PCO2 42 mmHg (35-45); ABG PH 7.36 pH Units (7.32-7.45); ABG PO2 58 mmHg (85-104); ABG TCO2 25 mEq/L (20-26); Blood Gas VT 400 cc
[2021-06-26 04:53] LABS: Basophils # 0.1 K/mcL (0.0-0.2); Basophils % 0.3 %; Eosinophils # 0.3 K/mcL (0.0-0.6); Eosinophils % 2.1 %; Hematocrit 25.2 % (35.3-44.9); Hemoglobin 8.1 g/dL (11.5-15.4); Immature Granulocytes % 1.7 % (0-4); Lymphocytes # 1.3 K/mcL (0.6-4.6); Lymphocytes % 8.4 %; Mean Corpuscular HGB Conc 32.1 g/dL (31.6-35.5); Mean Corpuscular Hemoglobin 32.1 pg (28.0-33.3); Mean Platelet Volume 10.9 fL (9.4-12.4); Monocytes # 1.7 K/mcL (0.0-1.3); Neutrophils # 11.9 K/mcL (1.6-8.9); Nucleated Red Blood Cells 0.6 /100 WBC (0); Platelet Count 129 K/mcL (140-400); Red Blood Count 2.52 M/mcL (3.82-4.97); Red Cell Distribution Width 20.8 % (11.5-14.5); Segmented Neutrophils % 76.5 %; White Blood Count 15.5 K/mcL (4.3-11.1)
[2021-06-26 05:12] LABS: Alanine Aminotransferase 17 Units/L (7-52); Albumin/Globulin Ratio 1.8 (1.1-2.2); Alkaline Phosphatase 50 Units/L (34-104); Aspartate Amino Transferase 24 Units/L (13-39); BUN/Creatinine Ratio 35 (6-26); Bilirubin,Total 1.6 mg/dL (0.3-1.0); Blood Urea Nitrogen 25 mg/dL (8-23); Calcium 7.5 mg/dL (8.6-10.3); Carbon Dioxide 24 mEq/L (23-29); Chloride 112 mEq/L (98-107); Globulin 1.7 g/dL (2.4-3.5); Glucose 146 mg/dL (70-105); Magnesium 2.4 mg/dL (1.6-2.6); Osmolality,Calculated 297 (280-300); Phosphorous 1.8 mg/dL (2.7-4.5); Potassium 3.3 mEq/L (3.5-5.1); Sodium 140 mEq/L (136-145); Total Protein 4.7 g/dL (6.4-8.9); eGFR For African Americans > 60 (> 60); eGFR For Non-African Americans > 60 (> 60)
[2021-06-26] MEDS: Pantoprazole 40 MG VIAL IVP SCH ×2 (05:40→16:52)
[2021-06-26] MEDS: Chlorhexidine Rinse 15 ML MOUTHWASH MM SCH ×2 (07:38→19:30)
[2021-06-26] MEDS ORDERED: Lidocaine -MPF 1% 5 ML AMPUL INFILT ONE (07:42)
[2021-06-26] MEDS ORDERED: Potassium Chloride Elixir 20 MEQ/15 ML UDC PO ONE (07:55)
[2021-06-26 08:20] LABS: INR 1.9; Prothrombin Time 21.2 Seconds (9.4-12.1)
[2021-06-26] MEDS: Fat Emulsion 250 ML IVPB SCH (16:53)
[2021-06-26] MEDS ORDERED: Clinimix E 5%-15% SOLUTION 2,000 ML IVC SCH (17:00)
[2021-06-26] MEDS: Phenylephrine 50 MG in 0.9 % Sodium Chloride 250 ML IVC SCH (19:13)
[2021-06-26] MEDS: Cisatracurium 200 MG in 0.9 % Sodium Chloride 180 ML IVC SCH (21:54)
[2021-06-27] MEDS: Dexmedetomidine HCl 400 MCG/100 ML MLS IVC SCH ×2 (02:21→19:15)
[2021-06-27] MEDS: Norepinephrine 4 MG/254 ML IV.SOLN IVC SCH (03:15)
[2021-06-27 03:38] LABS: Hemoglobin 7.9 g/dL (11.5-15.4); Red Cell Distribution Width 20.6 % (11.5-14.5)
[2021-06-27 03:40] LABS: Eosinophils # 0.2 K/mcL (0.0-0.6); Immature Platelets 6.5 % (1.1-6.1); Mean Corpuscular HGB Conc 31.6 g/dL (31.6-35.5); Mean Corpuscular Hemoglobin 32.1 pg (28.0-33.3); Mean Corpuscular Volume 101.6 fL (83.0-100.0); Mean Platelet Volume 10.9 fL (9.4-12.4); Nucleated Red Blood Cells 1.3 /100 WBC (0); Red Blood Count 2.46 M/mcL (3.82-4.97); White Blood Count 10.7 K/mcL (4.3-11.1)
[2021-06-27 03:58] LABS: Alanine Aminotransferase 19 Units/L (7-52); Albumin 2.8 g/dL (3.5-5.7); Albumin/Globulin Ratio 1.6 (1.1-2.2); Alkaline Phosphatase 55 Units/L (34-104); Aspartate Amino Transferase 34 Units/L (13-39); BUN/Creatinine Ratio 41 (6-26); Bilirubin,Total 1.5 mg/dL (0.3-1.0); Blood Urea Nitrogen 26 mg/dL (8-23); Carbon Dioxide 24 mEq/L (23-29); Chloride 113 mEq/L (98-107); Globulin 1.8 g/dL (2.4-3.5); Glucose 134 mg/dL (70-105); Magnesium 2.4 mg/dL (1.6-2.6); Osmolality,Calculated 295 (280-300); Phosphorous 2.2 mg/dL (2.7-4.5); Potassium 4.1 mEq/L (3.5-5.1); Sodium 139 mEq/L (136-145); Total Protein 4.6 g/dL (6.4-8.9); eGFR For African Americans > 60 (> 60); eGFR For Non-African Americans > 60 (> 60)
[2021-06-27] MEDS: Ipratropium/Albuterol Neb 3 ML IH SCH ×4 (04:10→19:37)
[2021-06-27 04:55] LABS: ABG Base Excess -1 mEq/L (-2 to 3); ABG HCO3 23 mEq/L (21-27); ABG Oxygen Saturation 91 % (95-98); ABG PCO2 33 mmHg (35-45); ABG PH 7.45 pH Units (7.32-7.45); ABG PO2 58 mmHg (85-104); ABG TCO2 24 mEq/L (20-26); Blood Gas Modality ASSIST CONTROL; Blood Gas VT 400 cc
[2021-06-27 05:06] LABS: Platelet Count 86 K/mcL (140-400)
[2021-06-27] MEDS: Artificial Tears SOLN 15 ML BOTTLE BOTH EYES SCH ×6 (05:08→23:47)
[2021-06-27] MEDS: Insulin LISPRO 300 UNITS/3 ML VIAL SUBQ SCH ×6 (05:08→23:46)
[2021-06-27] MEDS: Pantoprazole 40 MG VIAL IVP SCH ×2 (05:18→16:46)
[2021-06-27 05:19] LABS: Lymphocytes # 0.6 K/mcL (0.6-4.6); Monocytes # 1.1 K/mcL (0.0-1.3); Neutrophils # 8.8 K/mcL (1.6-8.9)
[2021-06-27] MEDS: Chlorhexidine Rinse 15 ML MOUTHWASH MM SCH ×2 (08:23→19:42)
[2021-06-27] MEDS: Metoclopramide 10 MG/2 ML VIAL IVP SCH ×2 (11:56→19:16)
[2021-06-27] MEDS: Albumin 25% 25gram/100mL 25 GM/100 ML IV.SOLN IVPB SCH ×2 (11:57→19:42)
[2021-06-27] MEDS: Furosemide 20 MG/2 ML VIAL IVP SCH ×2 (15:38→21:29)
[2021-06-27] MEDS: Fat Emulsion 250 ML IVPB SCH (16:48)
[2021-06-27] MEDS ORDERED: Clinimix E 5%-15% SOLUTION 2,000 ML with MVI, adult with vitamin K 10 ML IVC SCH (17:00)
[2021-06-28] MEDS: Metoclopramide 10 MG/2 ML VIAL IVP SCH ×3 (02:30→17:38)
[2021-06-28] MEDS: Dexmedetomidine HCl 400 MCG/100 ML MLS IVC SCH ×5 (02:37→21:45)
[2021-06-28] MEDS: Ipratropium/Albuterol Neb 3 ML IH SCH ×4 (03:18→19:44)
[2021-06-28] MEDS: Albumin 25% 25gram/100mL 25 GM/100 ML IV.SOLN IVPB SCH ×4 (04:04→23:19)
[2021-06-28 04:07] LABS: ABG Base Excess 1 mEq/L (-2 to 3); ABG HCO3 26 mEq/L (21-27); ABG Oxygen Saturation 95 % (95-98); ABG PCO2 45 mmHg (35-45); ABG PH 7.37 pH Units (7.32-7.45); ABG PO2 80 mmHg (85-104); ABG TCO2 27 mEq/L (20-26); Blood Gas Modality AF; Blood Gas VT 400 cc
[2021-06-28] MEDS: Artificial Tears SOLN 15 ML BOTTLE BOTH EYES SCH ×6 (04:25→23:20)
[2021-06-28] MEDS: Insulin LISPRO 300 UNITS/3 ML VIAL SUBQ SCH ×5 (04:37→20:28)
[2021-06-28 04:53] LABS: Basophils % 0.3 %; Hemoglobin 7.4 g/dL (11.5-15.4)
[2021-06-28 04:55] LABS: Eosinophils # 0.1 K/mcL (0.0-0.6); Eosinophils % 0.9 %; Hematocrit 22.9 % (35.3-44.9); Immature Granulocytes % 2.4 % (0-4); Immature Platelets 9.6 % (1.1-6.1); Lymphocytes # 0.7 K/mcL (0.6-4.6); Mean Corpuscular HGB Conc 32.3 g/dL (31.6-35.5); Mean Corpuscular Hemoglobin 36.1 pg (28.0-33.3); Mean Corpuscular Volume 111.7 fL (83.0-100.0); Mean Platelet Volume 11.2 fL (9.4-12.4); Monocytes # 1.4 K/mcL (0.0-1.3); Monocytes % 17.9 %; Neutrophils # 5.3 K/mcL (1.6-8.9); Nucleated Red Blood Cells 1.2 /100 WBC (0); Red Blood Count 2.05 M/mcL (3.82-4.97); Red Cell Distribution Width 21.2 % (11.5-14.5); Segmented Neutrophils % 69.5 %; White Blood Count 7.6 K/mcL (4.3-11.1)
[2021-06-28 05:16] LABS: Platelet Count 70 K/mcL (140-400)
[2021-06-28] MEDS: Furosemide 20 MG/2 ML VIAL IVP SCH ×3 (06:00→16:05)
[2021-06-28] MEDS: Pantoprazole 40 MG VIAL IVP SCH ×2 (06:00→17:38)
[2021-06-28 06:16] LABS: Alanine Aminotransferase 16 Units/L (7-52); Albumin 3.3 g/dL (3.5-5.7); Albumin/Globulin Ratio 2.1 (1.1-2.2); Alkaline Phosphatase 41 Units/L (34-104); Aspartate Amino Transferase 25 Units/L (13-39); BUN/Creatinine Ratio 39 (6-26); Bilirubin,Total 1.4 mg/dL (0.3-1.0); Blood Urea Nitrogen 30 mg/dL (8-23); Calcium 8.7 mg/dL (8.6-10.3); Carbon Dioxide 27 mEq/L (23-29); Chloride 111 mEq/L (98-107); Globulin 1.6 g/dL (2.4-3.5); Glucose 150 mg/dL (70-105); Magnesium 2.2 mg/dL (1.6-2.6); Osmolality,Calculated 301 (280-300); Phosphorous 3.1 mg/dL (2.7-4.5); Potassium 3.8 mEq/L (3.5-5.1); Sodium 141 mEq/L (136-145); Total Protein 4.9 g/dL (6.4-8.9); eGFR For African Americans > 60 (> 60); eGFR For Non-African Americans > 60 (> 60)
[2021-06-28] MEDS: Chlorhexidine Rinse 15 ML MOUTHWASH MM SCH ×2 (07:40→19:20)
[2021-06-28 07:55] LABS: Platelet Estimate Decreased (Normal)
[2021-06-28 07:56] LABS: Anisocytosis 1+ (Not Present); Macrocytosis Present (Not Present); Poikilocytosis 2+ (Not Present)
[2021-06-28] MEDS: Midazolam HCl 50 MG/100 ML IV.SOLN IVC SCH ×2 (08:31→19:51)
[2021-06-28] MEDS: Phenylephrine 50 MG in 0.9 % Sodium Chloride 250 ML IVC SCH ×2 (08:31→08:34)
[2021-06-28] MEDS: Cisatracurium 200 MG in 0.9 % Sodium Chloride 180 ML IVC SCH ×2 (08:32→19:51)
[2021-06-28] MEDS: Fat Emulsion 250 ML IVPB SCH (16:17)
[2021-06-28] MEDS ORDERED: Clinimix E 5%-15% SOLUTION 2,000 ML IVC SCH (17:00)
[2021-06-28] MEDS: FentaNYL (PF) 1,000 MCG/100 ML IV.SOLN IVC SCH (19:52)
[2021-06-29] MEDS: Insulin LISPRO 300 UNITS/3 ML VIAL SUBQ SCH ×7 (00:57→23:41)
[2021-06-29] MEDS: Dexmedetomidine HCl 400 MCG/100 ML MLS IVC SCH ×8 (01:33→23:30)
[2021-06-29] MEDS: Furosemide 20 MG/2 ML VIAL IVP SCH (01:33)
[2021-06-29] MEDS: Metoclopramide 10 MG/2 ML VIAL IVP SCH ×3 (01:43→16:47)
[2021-06-29] MEDS: Artificial Tears SOLN 15 ML BOTTLE BOTH EYES SCH ×6 (03:13→23:31)
[2021-06-29 03:56] LABS: Hematocrit 22.1 % (35.3-44.9); Nucleated Red Blood Cells 0.5 /100 WBC (0)
[2021-06-29 03:58] LABS: Basophils % 0.3 %; Eosinophils # 0.1 K/mcL (0.0-0.6); Eosinophils % 0.8 %; Immature Granulocytes % 1.1 % (0-4); Lymphocytes # 0.5 K/mcL (0.6-4.6); Lymphocytes % 6.8 %; Mean Corpuscular HGB Conc 31.7 g/dL (31.6-35.5); Mean Corpuscular Hemoglobin 32.4 pg (28.0-33.3); Mean Platelet Volume 11.3 fL (9.4-12.4); Monocytes # 1.2 K/mcL (0.0-1.3); Monocytes % 15.4 %; Neutrophils # 5.7 K/mcL (1.6-8.9); Platelet Count 68 K/mcL (140-400); Red Blood Count 2.16 M/mcL (3.82-4.97); Red Cell Distribution Width 19.5 % (11.5-14.5); Segmented Neutrophils % 75.6 %; White Blood Count 7.5 K/mcL (4.3-11.1)
[2021-06-29] MEDS: Ipratropium/Albuterol Neb 3 ML IH SCH ×4 (03:58→19:39)
[2021-06-29 04:00] LABS: Mean Corpuscular Volume 102.3 fL (83.0-100.0)
[2021-06-29 04:11] LABS: ABG Base Excess 2 mEq/L (-2 to 3); ABG HCO3 26 mEq/L (21-27); ABG Oxygen Saturation 92 % (95-98); ABG PCO2 38 mmHg (35-45); ABG PH 7.44 pH Units (7.32-7.45); ABG PO2 63 mmHg (85-104); ABG TCO2 27 mEq/L (20-26); Blood Gas Modality AF; Blood Gas VT 400 cc
[2021-06-29 04:16] LABS: Alanine Aminotransferase 16 Units/L (7-52); Albumin 3.7 g/dL (3.5-5.7); Albumin/Globulin Ratio 2.3 (1.1-2.2); Alkaline Phosphatase 37 Units/L (34-104); Aspartate Amino Transferase 26 Units/L (13-39); BUN/Creatinine Ratio 43 (6-26); Bilirubin,Total 1.5 mg/dL (0.3-1.0); Blood Urea Nitrogen 29 mg/dL (8-23); Calcium 9.1 mg/dL (8.6-10.3); Carbon Dioxide 28 mEq/L (23-29); Chloride 109 mEq/L (98-107); Globulin 1.6 g/dL (2.4-3.5); Glucose 138 mg/dL (70-105); Magnesium 1.8 mg/dL (1.6-2.6); Osmolality,Calculated 302 (280-300); Phosphorous 3.6 mg/dL (2.7-4.5); Potassium 3.7 mEq/L (3.5-5.1); Sodium 142 mEq/L (136-145); Total Protein 5.3 g/dL (6.4-8.9); eGFR For African Americans > 60 (> 60); eGFR For Non-African Americans > 60 (> 60)
[2021-06-29 04:24] LABS: Basophilic Stippling 1+ (Not Present); Hypochromasia Present (Not Present); Platelet Estimate Decreased (Normal); Polychromasia 2+ (Not Present)
[2021-06-29] MEDS: Pantoprazole 40 MG VIAL IVP SCH ×2 (05:54→16:14)
[2021-06-29] MEDS: Chlorhexidine Rinse 15 ML MOUTHWASH MM SCH ×2 (07:10→19:28)
[2021-06-29] MEDS: FentaNYL (PF) 1,000 MCG/100 ML IV.SOLN IVC SCH ×2 (10:16→16:27)
[2021-06-29] MEDS: Phenylephrine 50 MG in 0.9 % Sodium Chloride 250 ML IVC SCH (10:31)
[2021-06-29] MEDS: Norepinephrine 4 MG/254 ML IV.SOLN IVC SCH ×2 (12:07→19:30)
[2021-06-29] MEDS: Fat Emulsion 250 ML IVPB SCH (16:14)
[2021-06-29] MEDS ORDERED: Clinimix E 5%-15% SOLUTION 2,000 ML IVC SCH (17:00)
[2021-06-29 18:27] LABS: Bilirubin,Urine Negative (Negative); Blood,Urine Trace (Negative); Clarity,Urine Turbid (Clear); Color,Urine Yellow (Yellow); Glucose,Urine (UA) Normal (Normal); Ketones,Urine Negative (Negative); Leukocyte Esterase,Urine Negative (Negative); Mucus,Urine Few per lpf (None-Few); Nitrite,Urine Negative (Negative); Protein,Urine 30 mg/dL (Neg-Trace); Specific Gravity,Urine 1.021 (1.010-1.025); Urobilinogen,Urine Normal (Normal)
[2021-06-29] MEDS: Midazolam HCl 50 MG/100 ML IV.SOLN IVC SCH (19:30)
[2021-06-29] MEDS: Cisatracurium 200 MG in 0.9 % Sodium Chloride 180 ML IVC SCH (19:30)
[2021-06-29] MEDS: Lactulose Oral Soln 20 GM/30 ML UDC GTUBE SCH (20:12)
[2021-06-30] MEDS: Dexmedetomidine HCl 400 MCG/100 ML MLS IVC SCH ×7 (01:35→23:35)
[2021-06-30] MEDS: Artificial Tears SOLN 15 ML BOTTLE BOTH EYES SCH ×5 (02:34→20:14)
[2021-06-30] MEDS: Metoclopramide 10 MG/2 ML VIAL IVP SCH ×3 (02:34→17:21)
[2021-06-30] MEDS: FentaNYL (PF) 1,000 MCG/100 ML IV.SOLN IVC SCH ×4 (02:35→22:36)
[2021-06-30] MEDS: Insulin LISPRO 300 UNITS/3 ML VIAL SUBQ SCH ×5 (03:25→20:15)
[2021-06-30] MEDS: Norepinephrine 4 MG/254 ML IV.SOLN IVC SCH ×4 (03:26→22:47)
[2021-06-30 03:35] LABS: Hematocrit 23.5 % (35.3-44.9); Mean Platelet Volume 11.4 fL (9.4-12.4)
[2021-06-30 03:37] LABS: Hemoglobin 7.3 g/dL (11.5-15.4); Immature Platelets 10.7 % (1.1-6.1); Mean Corpuscular HGB Conc 31.1 g/dL (31.6-35.5); Mean Corpuscular Hemoglobin 32.3 pg (28.0-33.3); Red Blood Count 2.26 M/mcL (3.82-4.97); Red Cell Distribution Width 18.9 % (11.5-14.5); White Blood Count 13.1 K/mcL (4.3-11.1)
[2021-06-30] MEDS: Ipratropium/Albuterol Neb 3 ML IH SCH ×4 (03:45→20:07)
[2021-06-30 03:57] LABS: Alanine Aminotransferase 19 Units/L (7-52); Albumin 3.6 g/dL (3.5-5.7); Albumin/Globulin Ratio 1.6 (1.1-2.2); Alkaline Phosphatase 44 Units/L (34-104); Aspartate Amino Transferase 32 Units/L (13-39); BUN/Creatinine Ratio 46 (6-26); Bilirubin,Total 1.6 mg/dL (0.3-1.0); Blood Urea Nitrogen 27 mg/dL (8-23); Calcium 9.4 mg/dL (8.6-10.3); Carbon Dioxide 27 mEq/L (23-29); Chloride 108 mEq/L (98-107); Globulin 2.2 g/dL (2.4-3.5); Glucose 144 mg/dL (70-105); Magnesium 1.8 mg/dL (1.6-2.6); Osmolality,Calculated 298 (280-300); Phosphorous 4.1 mg/dL (2.7-4.5); Potassium 4.3 mEq/L (3.5-5.1); Sodium 140 mEq/L (136-145); Total Protein 5.8 g/dL (6.4-8.9); eGFR For African Americans > 60 (> 60); eGFR For Non-African Americans > 60 (> 60)
[2021-06-30 04:20] LABS: ABG Base Excess 3 mEq/L (-2 to 3); ABG HCO3 29 mEq/L (21-27); ABG Oxygen Saturation 91 % (95-98); ABG PCO2 58 mmHg (35-45); ABG PH 7.31 pH Units (7.32-7.45); ABG PO2 68 mmHg (85-104); ABG TCO2 31 mEq/L (20-26); Blood Gas VT 400 cc
[2021-06-30] MEDS: Pantoprazole 40 MG VIAL IVP SCH ×2 (04:38→17:11)
[2021-06-30] MEDS: Lactulose Oral Soln 20 GM/30 ML UDC GTUBE SCH ×2 (08:13→20:36)
[2021-06-30] MEDS: Chlorhexidine Rinse 15 ML MOUTHWASH MM SCH ×2 (08:13→20:36)
[2021-06-30] MEDS: Phenylephrine 50 MG in 0.9 % Sodium Chloride 250 ML IVC SCH (10:38)
[2021-06-30] MEDS: Albumin 25% 12.5gm/50mL 12.5 GM/50 ML IV.SOLN IVPB SCH ×2 (12:59→20:37)
[2021-06-30] MEDS ORDERED: Furosemide 40 MG/4 ML VIAL IVP ONE (13:30)
[2021-06-30] MEDS: Furosemide 40 MG/4 ML VIAL IVP SCH (13:56)
[2021-06-30] MEDS ORDERED: Clinimix E 5%-15% SOLUTION 2,000 ML with MVI, adult with vitamin K 10 ML IVC SCH (17:00)
[2021-06-30] MEDS: Fat Emulsion 250 ML IVPB SCH (17:11)
[2021-06-30] MEDS: Cefepime HCl 2,000 MG in 0.9 % Sodium Chloride 10 ML IVP SCH (19:34)
[2021-06-30 19:39] LABS: BUN/Creatinine Ratio 41 (6-26); Blood Urea Nitrogen 33 mg/dL (8-23); Calcium 9.3 mg/dL (8.6-10.3); Carbon Dioxide 30 mEq/L (23-29); Chloride 108 mEq/L (98-107); Glucose 159 mg/dL (70-105); Osmolality,Calculated 301 (280-300); Potassium 4.1 mEq/L (3.5-5.1); Sodium 140 mEq/L (136-145); eGFR For African Americans > 60 (> 60); eGFR For Non-African Americans > 60 (> 60)
[2021-06-30] MEDS: Midazolam HCl 50 MG/100 ML IV.SOLN IVC SCH (22:04)
[2021-06-30] MEDS: Cisatracurium 200 MG in 0.9 % Sodium Chloride 180 ML IVC SCH (23:30)
[2021-07-01] MEDS: Furosemide 40 MG/4 ML VIAL IVP SCH ×2 (00:56→08:36)
[2021-07-01] MEDS: Metoclopramide 10 MG/2 ML VIAL IVP SCH ×3 (02:11→17:12)
[2021-07-01] MEDS: Cefepime HCl 2,000 MG in 0.9 % Sodium Chloride 10 ML IVP SCH ×3 (02:12→17:12)
[2021-07-01] MEDS: Insulin LISPRO 300 UNITS/3 ML VIAL SUBQ SCH ×6 (02:13→19:47)
[2021-07-01] MEDS: Artificial Tears SOLN 15 ML BOTTLE BOTH EYES SCH ×6 (02:14→19:46)
[2021-07-01] MEDS: Dexmedetomidine HCl 400 MCG/100 ML MLS IVC SCH ×7 (02:33→22:39)
[2021-07-01] MEDS: FentaNYL (PF) 1,000 MCG/100 ML IV.SOLN IVC SCH ×3 (03:37→19:25)
[2021-07-01] MEDS: Albumin 25% 12.5gm/50mL 12.5 GM/50 ML IV.SOLN IVPB SCH (03:44)
[2021-07-01] MEDS: Ipratropium/Albuterol Neb 3 ML IH SCH ×4 (04:09→21:25)
[2021-07-01 04:22] LABS: ABG Base Excess 2 mEq/L (-2 to 3); ABG HCO3 28 mEq/L (21-27); ABG Oxygen Saturation 100 % (95-98); ABG PCO2 54 mmHg (35-45); ABG PH 7.33 pH Units (7.32-7.45); ABG PO2 235 mmHg (85-104); ABG TCO2 30 mEq/L (20-26); Blood Gas Modality ASSIST CONTROL; Blood Gas VT 400 cc
[2021-07-01 05:30] LABS: Alanine Aminotransferase 17 Units/L (7-52); Albumin 3.3 g/dL (3.5-5.7); Albumin/Globulin Ratio 1.9 (1.1-2.2); Alkaline Phosphatase 38 Units/L (34-104); Aspartate Amino Transferase 26 Units/L (13-39); BUN/Creatinine Ratio 44 (6-26); Bilirubin,Direct 0.6 mg/dL (0.0-0.2); Bilirubin,Indirect 0.6 mg/dL (0.0-1.0); Bilirubin,Total 1.2 mg/dL (0.3-1.0); Blood Urea Nitrogen 35 mg/dL (8-23); Calcium 8.9 mg/dL (8.6-10.3); Carbon Dioxide 28 mEq/L (23-29); Chloride 104 mEq/L (98-107); Globulin 1.7 g/dL (2.4-3.5); Glucose 257 mg/dL (70-105); Magnesium 1.6 mg/dL (1.6-2.6); Osmolality,Calculated 297 (280-300); Phosphorous 4.2 mg/dL (2.7-4.5); Potassium 3.7 mEq/L (3.5-5.1); Sodium 135 mEq/L (136-145); eGFR For African Americans > 60 (> 60); eGFR For Non-African Americans > 60 (> 60)
[2021-07-01] MEDS: Pantoprazole 40 MG VIAL IVP SCH ×2 (06:03→17:12)
[2021-07-01] MEDS: Lactulose Oral Soln 20 GM/30 ML UDC GTUBE SCH ×3 (08:38→19:46)
[2021-07-01] MEDS: Chlorhexidine Rinse 15 ML MOUTHWASH MM SCH ×2 (08:38→19:46)
[2021-07-01] MEDS: Phenylephrine 50 MG in 0.9 % Sodium Chloride 250 ML IVC SCH (13:28)
[2021-07-01 14:32] LABS: Albumin 3.4 g/dL (3.5-5.7); Albumin/Globulin Ratio 1.8 (1.1-2.2); Bilirubin,Direct 0.7 mg/dL (0.0-0.2); Bilirubin,Indirect 0.8 mg/dL (0.0-1.0); Bilirubin,Total 1.5 mg/dL (0.3-1.0); Globulin 1.9 g/dL (2.4-3.5); Total Protein 5.3 g/dL (6.4-8.9)
[2021-07-01] MEDS: Norepinephrine 4 MG/254 ML IV.SOLN IVC SCH (15:10)
[2021-07-01] MEDS: Fat Emulsion 250 ML IVPB SCH (16:25)
[2021-07-01] MEDS ORDERED: CLINIMIX E IVC SCH (17:00)
[2021-07-01] MEDS ORDERED: [UNRECOGNIZED DRUG - OTHER] IVC SCH (17:00)
[2021-07-01] MEDS ORDERED: PARENTERAL AMINO ACID 10% IVC SCH (17:00)
[2021-07-02] MEDS: Artificial Tears SOLN 15 ML BOTTLE BOTH EYES SCH ×7 (00:57→23:20)
[2021-07-02] MEDS: Insulin LISPRO 300 UNITS/3 ML VIAL SUBQ SCH ×6 (00:57→20:53)
[2021-07-02] MEDS: Dexmedetomidine HCl 400 MCG/100 ML MLS IVC SCH ×6 (01:30→23:20)
[2021-07-02] MEDS: FentaNYL (PF) 1,000 MCG/100 ML IV.SOLN IVC SCH (02:40)
[2021-07-02] MEDS: Cefepime HCl 2,000 MG in 0.9 % Sodium Chloride 10 ML IVP SCH ×3 (02:50→17:14)
[2021-07-02] MEDS: Metoclopramide 10 MG/2 ML VIAL IVP SCH ×3 (02:50→17:14)
[2021-07-02] MEDS: Ipratropium/Albuterol Neb 3 ML IH SCH ×5 (03:39→19:50)
[2021-07-02 04:12] LABS: Hemoglobin 6.5 g/dL (11.5-15.4); Red Cell Distribution Width 18.6 % (11.5-14.5)
[2021-07-02 04:14] LABS: Basophils % 0.2 %; Eosinophils # 0.3 K/mcL (0.0-0.6); Eosinophils % 2.2 %; Hematocrit 21.3 % (35.3-44.9); Immature Granulocytes % 1.2 % (0-4); Immature Platelets 11.5 % (1.1-6.1); Lymphocytes # 0.8 K/mcL (0.6-4.6); Lymphocytes % 6.2 %; Mean Corpuscular HGB Conc 30.5 g/dL (31.6-35.5); Mean Corpuscular Hemoglobin 31.7 pg (28.0-33.3); Mean Corpuscular Volume 103.9 fL (83.0-100.0); Mean Platelet Volume 11.8 fL (9.4-12.4); Monocytes # 1.7 K/mcL (0.0-1.3); Monocytes % 13.3 %; Neutrophils # 9.6 K/mcL (1.6-8.9); Nucleated Red Blood Cells 0.3 /100 WBC (0); Red Blood Count 2.05 M/mcL (3.82-4.97); Segmented Neutrophils % 76.9 %; White Blood Count 12.5 K/mcL (4.3-11.1)
[2021-07-02 04:18] LABS: Platelet Count 63 K/mcL (140-400)
[2021-07-02 04:35] LABS: Alanine Aminotransferase 19 Units/L (7-52); Albumin 3.2 g/dL (3.5-5.7); Albumin/Globulin Ratio 1.5 (1.1-2.2); Alkaline Phosphatase 42 Units/L (34-104); Aspartate Amino Transferase 29 Units/L (13-39); BUN/Creatinine Ratio 51 (6-26); Bilirubin,Total 1.2 mg/dL (0.3-1.0); Blood Urea Nitrogen 43 mg/dL (8-23); Calcium 9.4 mg/dL (8.6-10.3); Carbon Dioxide 27 mEq/L (23-29); Chloride 107 mEq/L (98-107); Globulin 2.2 g/dL (2.4-3.5); Glucose 125 mg/dL (70-105); Magnesium 2.2 mg/dL (1.6-2.6); Osmolality,Calculated 296 (280-300); Phosphorous 4.4 mg/dL (2.7-4.5); Potassium 4.4 mEq/L (3.5-5.1); Sodium 137 mEq/L (136-145); Total Protein 5.4 g/dL (6.4-8.9); Triglycerides 49 mg/dL (< 150); eGFR For African Americans > 60 (> 60); eGFR For Non-African Americans > 60 (> 60)
[2021-07-02 04:47] LABS: ABG Base Excess 2 mEq/L (-2 to 3); ABG HCO3 28 mEq/L (21-27); ABG Oxygen Saturation 95 % (95-98); ABG PCO2 47 mmHg (35-45); ABG PH 7.38 pH Units (7.32-7.45); ABG PO2 78 mmHg (85-104); ABG TCO2 29 mEq/L (20-26); Blood Gas Modality AF; Blood Gas VT 400 cc
[2021-07-02] MEDS: Pantoprazole 40 MG VIAL IVP SCH ×2 (05:32→17:15)
[2021-07-02] MEDS: Midazolam HCl 50 MG/100 ML IV.SOLN IVC SCH ×2 (07:18→19:28)
[2021-07-02] MEDS: Cisatracurium 200 MG in 0.9 % Sodium Chloride 180 ML IVC SCH (07:19)
[2021-07-02] MEDS: Norepinephrine 4 MG/254 ML IV.SOLN IVC SCH ×3 (08:16→16:09)
[2021-07-02] MEDS: Lactulose Oral Soln 20 GM/30 ML UDC GTUBE SCH ×3 (08:25→19:27)
[2021-07-02] MEDS: Chlorhexidine Rinse 15 ML MOUTHWASH MM SCH ×2 (08:25→19:39)
[2021-07-02] MEDS: Furosemide 40 MG/4 ML VIAL IVP SCH ×2 (11:14→15:04)
[2021-07-02] MEDS: Phenylephrine 50 MG in 0.9 % Sodium Chloride 250 ML IVC SCH (11:27)
[2021-07-02] MEDS: Fat Emulsion 250 ML IVPB SCH (16:54)
[2021-07-02] MEDS ORDERED: MVI IVC SCH (17:00)
[2021-07-02] MEDS ORDERED: CLINIMIX E IVC SCH (17:00)
[2021-07-02] MEDS ORDERED: AMINO ACIDS 10% IVC SCH (17:00)
[2021-07-02] MEDS ORDERED: [UNRECOGNIZED DRUG - OTHER] IVC SCH (17:00)
[2021-07-02 17:06] LABS: Appearance of Body Fluid Cloudy (Clear); Volume of Body Fluid 20 mL
[2021-07-03] MEDS: Insulin LISPRO 300 UNITS/3 ML VIAL SUBQ SCH ×7 (01:53→23:35)
[2021-07-03] MEDS: Norepinephrine 4 MG/254 ML IV.SOLN IVC SCH ×3 (01:53→17:43)
[2021-07-03] MEDS: Metoclopramide 10 MG/2 ML VIAL IVP SCH ×3 (02:00→19:07)
[2021-07-03] MEDS: Dexmedetomidine HCl 400 MCG/100 ML MLS IVC SCH ×6 (02:00→20:23)
[2021-07-03] MEDS: Cefepime HCl 2,000 MG in 0.9 % Sodium Chloride 10 ML IVP SCH ×3 (02:00→16:47)
[2021-07-03] MEDS: Artificial Tears SOLN 15 ML BOTTLE BOTH EYES SCH ×6 (03:28→23:36)
[2021-07-03] MEDS: Ipratropium/Albuterol Neb 3 ML IH SCH ×4 (04:03→20:12)
[2021-07-03 04:57] LABS: Basophils % 0.2 %; Eosinophils % 0.3 %; Hemoglobin 7.4 g/dL (11.5-15.4); Lymphocytes % 3.7 %
[2021-07-03 04:59] LABS: Eosinophils # 0.1 K/mcL (0.0-0.6); Hematocrit 23.6 % (35.3-44.9); Immature Platelets 11.9 % (1.1-6.1); Lymphocytes # 0.7 K/mcL (0.6-4.6); Mean Corpuscular HGB Conc 31.4 g/dL (31.6-35.5); Mean Corpuscular Hemoglobin 32.6 pg (28.0-33.3); Mean Platelet Volume 11.8 fL (9.4-12.4); Monocytes % 11.2 %; Neutrophils # 14.8 K/mcL (1.6-8.9); Platelet Count 69 K/mcL (140-400); Red Blood Count 2.27 M/mcL (3.82-4.97); Red Cell Distribution Width 19.4 % (11.5-14.5); Segmented Neutrophils % 83.6 %; White Blood Count 17.7 K/mcL (4.3-11.1)
[2021-07-03 05:19] LABS: Alanine Aminotransferase 19 Units/L (7-52); Albumin 3.3 g/dL (3.5-5.7); Albumin/Globulin Ratio 1.4 (1.1-2.2); Alkaline Phosphatase 51 Units/L (34-104); Aspartate Amino Transferase 29 Units/L (13-39); BUN/Creatinine Ratio 51 (6-26); Bilirubin,Total 1.3 mg/dL (0.3-1.0); Blood Urea Nitrogen 40 mg/dL (8-23); Calcium 9.2 mg/dL (8.6-10.3); Carbon Dioxide 27 mEq/L (23-29); Chloride 101 mEq/L (98-107); Globulin 2.3 g/dL (2.4-3.5); Glucose 265 mg/dL (70-105); Magnesium 1.8 mg/dL (1.6-2.6); Osmolality,Calculated 295 (280-300); Phosphorous 3.1 mg/dL (2.7-4.5); Potassium 4.1 mEq/L (3.5-5.1); Sodium 133 mEq/L (136-145); Total Protein 5.6 g/dL (6.4-8.9); eGFR For African Americans > 60 (> 60); eGFR For Non-African Americans > 60 (> 60)
[2021-07-03] MEDS: Pantoprazole 40 MG VIAL IVP SCH ×2 (06:28→16:47)
[2021-07-03] MEDS ORDERED: Glycopyrrolate 0.2 MG/ML VIAL IVP PRN (09:28)
[2021-07-03] MEDS: Chlorhexidine Rinse 15 ML MOUTHWASH MM SCH ×2 (09:41→19:09)
[2021-07-03] MEDS: Lactulose Oral Soln 20 GM/30 ML UDC GTUBE SCH ×3 (09:42→20:11)
[2021-07-03] MEDS: Phenylephrine 50 MG in 0.9 % Sodium Chloride 250 ML IVC SCH (09:42)
[2021-07-03] MEDS: Furosemide 40 MG/4 ML VIAL IVP SCH ×2 (10:19→16:48)
[2021-07-03] MEDS: Morphine Sulfate Oral CONC 10 MG/0.5 ML ORAL.SYG SL PRN ×3 (10:28→19:19)
[2021-07-03] MEDS: MethylPREDNISolone 40 MG/ML VIAL IVP SCH ×2 (16:48→23:35)
[2021-07-03] MEDS ORDERED: [UNRECOGNIZED DRUG - OTHER] IVC SCH (17:00)
[2021-07-03] MEDS ORDERED: CLINIMIX E IVC SCH (17:00)
[2021-07-03] MEDS: Fat Emulsion 250 ML IVPB SCH (17:00)
[2021-07-03] MEDS ORDERED: PARENTERAL AMINO ACID 10% IVC SCH (17:00)
[2021-07-04] MEDS: Morphine Sulfate Oral CONC 10 MG/0.5 ML ORAL.SYG SL PRN ×4 (00:31→15:43)
[2021-07-04] MEDS: Ipratropium/Albuterol Neb 3 ML IH SCH ×4 (00:43→20:02)
[2021-07-04] MEDS: Metoclopramide 10 MG/2 ML VIAL IVP SCH ×3 (02:31→17:22)
[2021-07-04] MEDS: Cefepime HCl 2,000 MG in 0.9 % Sodium Chloride 10 ML IVP SCH ×3 (02:31→17:23)
[2021-07-04] MEDS: Norepinephrine 4 MG/254 ML IV.SOLN IVC SCH (02:31)
[2021-07-04] MEDS: Dexmedetomidine HCl 400 MCG/100 ML MLS IVC SCH ×3 (02:32→13:39)
[2021-07-04 03:50] LABS: VBG Ionized Calcium 1.37 mmol/L (1.15-1.35)
[2021-07-04] MEDS: Ipratropium/Albuterol Neb 3 ML IH PRN (03:52)
[2021-07-04 03:55] LABS: Hemoglobin 8.2 g/dL (11.5-15.4); Mean Corpuscular Volume 100.9 fL (83.0-100.0); Monocytes % 4.2 %; Red Cell Distribution Width 19.4 % (11.5-14.5)
[2021-07-04 03:57] LABS: Basophils % 0.1 %; Hematocrit 23.4 % (35.3-44.9); Immature Granulocytes % 0.6 % (0-4); Immature Platelets 11.4 % (1.1-6.1); Lymphocytes # 0.3 K/mcL (0.6-4.6); Lymphocytes % 2.9 %; Mean Corpuscular Hemoglobin 35.3 pg (28.0-33.3); Mean Platelet Volume 12.3 fL (9.4-12.4); Monocytes # 0.5 K/mcL (0.0-1.3); Neutrophils # 10.4 K/mcL (1.6-8.9); Red Blood Count 2.32 M/mcL (3.82-4.97); Segmented Neutrophils % 92.2 %; White Blood Count 11.3 K/mcL (4.3-11.1)
[2021-07-04 03:58] LABS: Platelet Count 78 K/mcL (140-400)
[2021-07-04] MEDS: Insulin LISPRO 300 UNITS/3 ML VIAL SUBQ SCH ×5 (04:06→20:21)
[2021-07-04] MEDS: Artificial Tears SOLN 15 ML BOTTLE BOTH EYES SCH ×5 (04:06→20:19)
[2021-07-04 04:43] LABS: Alanine Aminotransferase 20 Units/L (7-52); Albumin 3.2 g/dL (3.5-5.7); Albumin/Globulin Ratio 1.3 (1.1-2.2); Alkaline Phosphatase 49 Units/L (34-104); Aspartate Amino Transferase 39 Units/L (13-39); BUN/Creatinine Ratio 56 (6-26); Bilirubin,Total 1.4 mg/dL (0.3-1.0); Blood Urea Nitrogen 37 mg/dL (8-23); Calcium 9.8 mg/dL (8.6-10.3); Carbon Dioxide 26 mEq/L (23-29); Chloride 102 mEq/L (98-107); Globulin 2.5 g/dL (2.4-3.5); Glucose 216 mg/dL (70-105); Magnesium 1.7 mg/dL (1.6-2.6); Osmolality,Calculated 295 (280-300); Phosphorous 2.4 mg/dL (2.7-4.5); Potassium 4.1 mEq/L (3.5-5.1); Sodium 135 mEq/L (136-145); Total Protein 5.7 g/dL (6.4-8.9); eGFR For African Americans > 60 (> 60); eGFR For Non-African Americans > 60 (> 60)
[2021-07-04] MEDS: Pantoprazole 40 MG VIAL IVP SCH ×2 (05:29→17:22)
[2021-07-04] MEDS: MethylPREDNISolone 40 MG/ML VIAL IVP SCH ×2 (07:14→15:47)
[2021-07-04] MEDS: Chlorhexidine Rinse 15 ML MOUTHWASH MM SCH ×2 (07:14→20:19)
[2021-07-04] MEDS: Furosemide 40 MG/4 ML VIAL IVP SCH ×2 (07:14→15:47)
[2021-07-04] MEDS: Lactulose Oral Soln 20 GM/30 ML UDC GTUBE SCH ×3 (07:15→20:19)
[2021-07-04] MEDS ORDERED: *HR* Metoprolol 5 MG/5 ML VIAL IVP SCH (12:00)
[2021-07-04] MEDS ORDERED: Lactulose 200 GM, Sodium Chloride IRRigation 700 ML RC ONE (12:00)
[2021-07-04] MEDS ORDERED: Clinimix E 5%-15% SOLUTION 2,000 ML with MVI, adult with vitamin K 10 ML IVC SCH (17:00)
[2021-07-05] MEDS: Artificial Tears SOLN 15 ML BOTTLE BOTH EYES SCH ×6 (02:42→19:41)
[2021-07-05] MEDS: MethylPREDNISolone 40 MG/ML VIAL IVP SCH ×3 (02:48→17:22)
[2021-07-05] MEDS: Metoclopramide 10 MG/2 ML VIAL IVP SCH ×3 (02:48→17:23)
[2021-07-05] MEDS: Cefepime HCl 2,000 MG in 0.9 % Sodium Chloride 10 ML IVP SCH ×3 (02:49→17:23)
[2021-07-05] MEDS: Insulin LISPRO 300 UNITS/3 ML VIAL SUBQ SCH ×6 (02:55→19:41)
[2021-07-05] MEDS: Ipratropium/Albuterol Neb 3 ML IH SCH ×4 (03:52→19:58)
[2021-07-05 05:04] LABS: VBG Ionized Calcium 1.39 mmol/L (1.15-1.35)
[2021-07-05 05:28] LABS: Alanine Aminotransferase 24 Units/L (7-52); Albumin 3.4 g/dL (3.5-5.7); Albumin/Globulin Ratio 1.2 (1.1-2.2); Alkaline Phosphatase 59 Units/L (34-104); Aspartate Amino Transferase 34 Units/L (13-39); BUN/Creatinine Ratio 63 (6-26); Bilirubin,Total 1.3 mg/dL (0.3-1.0); Blood Urea Nitrogen 40 mg/dL (8-23); Calcium 10.3 mg/dL (8.6-10.3); Carbon Dioxide 30 mEq/L (23-29); Chloride 104 mEq/L (98-107); Globulin 2.8 g/dL (2.4-3.5); Glucose 176 mg/dL (70-105); Osmolality,Calculated 302 (280-300); Phosphorous 3.3 mg/dL (2.7-4.5); Potassium 3.7 mEq/L (3.5-5.1); Sodium 139 mEq/L (136-145); Total Protein 6.2 g/dL (6.4-8.9); eGFR For African Americans > 60 (> 60); eGFR For Non-African Americans > 60 (> 60)
[2021-07-05] MEDS: Pantoprazole 40 MG VIAL IVP SCH ×2 (05:51→17:23)
[2021-07-05] MEDS: Chlorhexidine Rinse 15 ML MOUTHWASH MM SCH ×2 (08:01→19:46)
[2021-07-05] MEDS: Furosemide 40 MG/4 ML VIAL IVP SCH ×2 (08:01→17:23)
[2021-07-05] MEDS: Lactulose Oral Soln 20 GM/30 ML UDC GTUBE SCH ×3 (08:02→19:46)
[2021-07-05] MEDS: Dexmedetomidine HCl 400 MCG/100 ML MLS IVC SCH ×2 (09:15→19:47)
[2021-07-05] MEDS ORDERED: Clinimix E 5%-15% SOLUTION 2,000 ML IVC SCH (17:00)
[2021-07-06] MEDS: Artificial Tears SOLN 15 ML BOTTLE BOTH EYES SCH ×6 (00:45→20:14)
[2021-07-06] MEDS: Insulin LISPRO 300 UNITS/3 ML VIAL SUBQ SCH ×6 (00:47→20:15)
[2021-07-06] MEDS: Metoclopramide 10 MG/2 ML VIAL IVP SCH ×3 (00:51→17:05)
[2021-07-06] MEDS: Cefepime HCl 2,000 MG in 0.9 % Sodium Chloride 10 ML IVP SCH ×3 (00:51→17:05)
[2021-07-06] MEDS: MethylPREDNISolone 40 MG/ML VIAL IVP SCH ×3 (00:53→15:05)
[2021-07-06] MEDS: Ipratropium/Albuterol Neb 3 ML IH SCH ×4 (03:26→21:19)
[2021-07-06 04:03] LABS: VBG Ionized Calcium 1.29 mmol/L (1.15-1.35)
[2021-07-06 04:14] LABS: Hematocrit 23.1 % (35.3-44.9); Hemoglobin 7.8 g/dL (11.5-15.4); Immature Granulocytes % 0.6 % (0-4); Immature Platelets 9.1 % (1.1-6.1); Lymphocytes # 0.3 K/mcL (0.6-4.6); Lymphocytes % 3.2 %; Mean Corpuscular HGB Conc 33.8 g/dL (31.6-35.5); Mean Corpuscular Hemoglobin 35.3 pg (28.0-33.3); Mean Corpuscular Volume 104.5 fL (83.0-100.0); Mean Platelet Volume 12.3 fL (9.4-12.4); Monocytes # 0.9 K/mcL (0.0-1.3); Monocytes % 8.7 %; Neutrophils # 9.2 K/mcL (1.6-8.9); Red Blood Count 2.21 M/mcL (3.82-4.97); Red Cell Distribution Width 21.5 % (11.5-14.5); Segmented Neutrophils % 87.5 %; White Blood Count 10.5 K/mcL (4.3-11.1)
[2021-07-06 04:15] LABS: Platelet Count 89 K/mcL (140-400)
[2021-07-06] MEDS: Dexmedetomidine HCl 400 MCG/100 ML MLS IVC SCH (04:15)
[2021-07-06 04:30] LABS: Alanine Aminotransferase 28 Units/L (7-52); Albumin 3.2 g/dL (3.5-5.7); Albumin/Globulin Ratio 1.2 (1.1-2.2); Alkaline Phosphatase 57 Units/L (34-104); Aspartate Amino Transferase 42 Units/L (13-39); BUN/Creatinine Ratio 68 (6-26); Bilirubin,Total 1.5 mg/dL (0.3-1.0); Blood Urea Nitrogen 46 mg/dL (8-23); Calcium 10.2 mg/dL (8.6-10.3); Carbon Dioxide 32 mEq/L (23-29); Chloride 104 mEq/L (98-107); Globulin 2.6 g/dL (2.4-3.5); Glucose 178 mg/dL (70-105); Magnesium 1.9 mg/dL (1.6-2.6); Osmolality,Calculated 306 (280-300); Phosphorous 2.6 mg/dL (2.7-4.5); Potassium 3.6 mEq/L (3.5-5.1); Sodium 140 mEq/L (136-145); Total Protein 5.8 g/dL (6.4-8.9); eGFR For African Americans > 60 (> 60); eGFR For Non-African Americans > 60 (> 60)
[2021-07-06] MEDS: Pantoprazole 40 MG VIAL IVP SCH ×2 (05:59→17:05)
[2021-07-06] MEDS: Chlorhexidine Rinse 15 ML MOUTHWASH MM SCH ×2 (07:36→20:01)
[2021-07-06] MEDS: Lactulose Oral Soln 20 GM/30 ML UDC GTUBE SCH ×3 (07:52→20:15)
[2021-07-06] MEDS: Furosemide 40 MG/4 ML VIAL IVP SCH ×2 (07:52→17:06)
[2021-07-06] MEDS ORDERED: Clinimix E 5%-15% SOLUTION 2,000 ML IVC SCH (17:00)
[2021-07-06] MEDS: Norepinephrine 4 MG/254 ML IV.SOLN IVC SCH (20:02)
[2021-07-07] MEDS: Artificial Tears SOLN 15 ML BOTTLE BOTH EYES SCH ×4 (00:34→11:10)
[2021-07-07] MEDS: Insulin LISPRO 300 UNITS/3 ML VIAL SUBQ SCH ×6 (00:34→21:21)
[2021-07-07] MEDS: MethylPREDNISolone 40 MG/ML VIAL IVP SCH ×2 (01:11→07:45)
[2021-07-07] MEDS: Cefepime HCl 2,000 MG in 0.9 % Sodium Chloride 10 ML IVP SCH ×3 (01:13→17:53)
[2021-07-07] MEDS: Metoclopramide 10 MG/2 ML VIAL IVP SCH ×3 (01:26→17:54)
[2021-07-07 03:41] LABS: Hematocrit 24.1 % (35.3-44.9); Immature Granulocytes % 0.8 % (0-4); Immature Platelets 9.4 % (1.1-6.1); Lymphocytes # 0.4 K/mcL (0.6-4.6); Lymphocytes % 3.4 %; Mean Corpuscular HGB Conc 33.2 g/dL (31.6-35.5); Mean Corpuscular Hemoglobin 34.3 pg (28.0-33.3); Mean Corpuscular Volume 103.4 fL (83.0-100.0); Mean Platelet Volume 12.2 fL (9.4-12.4); Monocytes % 9.2 %; Neutrophils # 9.7 K/mcL (1.6-8.9); Platelet Count 103 K/mcL (140-400); Red Blood Count 2.33 M/mcL (3.82-4.97); Red Cell Distribution Width 20.9 % (11.5-14.5); Segmented Neutrophils % 86.6 %; White Blood Count 11.2 K/mcL (4.3-11.1)
[2021-07-07 04:02] LABS: Alanine Aminotransferase 35 Units/L (7-52); Albumin 3.2 g/dL (3.5-5.7); Albumin/Globulin Ratio 1.1 (1.1-2.2); Alkaline Phosphatase 61 Units/L (34-104); Aspartate Amino Transferase 45 Units/L (13-39); BUN/Creatinine Ratio 62 (6-26); Bilirubin,Total 2.5 mg/dL (0.3-1.0); Blood Urea Nitrogen 47 mg/dL (8-23); Calcium 10.6 mg/dL (8.6-10.3); Carbon Dioxide 33 mEq/L (23-29); Chloride 105 mEq/L (98-107); Glucose 114 mg/dL (70-105); Magnesium 1.9 mg/dL (1.6-2.6); Osmolality,Calculated 311 (280-300); Phosphorous 2.8 mg/dL (2.7-4.5); Potassium 3.6 mEq/L (3.5-5.1); Sodium 144 mEq/L (136-145); Total Protein 6.2 g/dL (6.4-8.9); eGFR For African Americans > 60 (> 60); eGFR For Non-African Americans > 60 (> 60)
[2021-07-07] MEDS: Ipratropium/Albuterol Neb 3 ML IH SCH ×4 (04:06→20:31)
[2021-07-07] MEDS: Chlorhexidine Rinse 15 ML MOUTHWASH MM SCH ×2 (07:45→21:21)
[2021-07-07] MEDS: Furosemide 40 MG/4 ML VIAL IVP SCH (07:45)
[2021-07-07] MEDS: Morphine Sulfate Oral CONC 10 MG/0.5 ML ORAL.SYG SL PRN ×2 (07:45→12:35)
[2021-07-07] MEDS: Lactulose Oral Soln 20 GM/30 ML UDC GTUBE SCH (07:46)
[2021-07-07] MEDS: Pantoprazole 40 MG VIAL IVP SCH ×2 (07:58→17:54)
[2021-07-07] MEDS: Norepinephrine 4 MG/254 ML IV.SOLN IVC SCH ×4 (08:49→11:11)
[2021-07-07] MEDS ORDERED: E-Z-HD (BARIUM SULF) SUSPENSION PO ONE (10:18)
[2021-07-07] MEDS ORDERED: E-Z-PAQUE (BARIUM SULF) SUSP 1 BOTTLE PO ONE (10:18)
[2021-07-07] MEDS ORDERED: Naloxone 0.4 MG/ML INJ IVP PRN (13:45)
[2021-07-07] MEDS ORDERED: Artificial Tears SOLN 15 ML BOTTLE BOTH EYES PRN (13:45)
[2021-07-07] MEDS ORDERED: D10% in Water 500 ML IVC PRN (13:45)
[2021-07-07] MEDS ORDERED: Acetaminophen 325 MG TABLET PO PRN (13:45)
[2021-07-07] MEDS ORDERED: Glycopyrrolate 0.2 MG/ML VIAL IVP PRN (13:45)
[2021-07-07] MEDS ORDERED: Ipratropium/Albuterol Neb 3 ML IH PRN (13:45)
[2021-07-07] MEDS ORDERED: Lactulose Oral Soln 20 GM/30 ML UDC GTUBE SCH (15:00)
[2021-07-07] MEDS: Furosemide 20 MG/2 ML VIAL IVP SCH (17:53)
[2021-07-07] MEDS: Lactulose Oral Soln 20 GM/30 ML UDC PO SCH (21:21)
[2021-07-08] MEDS: Insulin LISPRO 300 UNITS/3 ML VIAL SUBQ SCH ×6 (00:08→21:37)
[2021-07-08 01:25] LABS: Basophils % 0.1 %; Hematocrit 24.8 % (35.3-44.9); Hemoglobin 7.8 g/dL (11.5-15.4); Immature Granulocytes % 0.5 % (0-4); Lymphocytes # 0.6 K/mcL (0.6-4.6); Lymphocytes % 4.4 %; Mean Corpuscular HGB Conc 31.5 g/dL (31.6-35.5); Mean Corpuscular Volume 101.6 fL (83.0-100.0); Mean Platelet Volume 12.9 fL (9.4-12.4); Monocytes # 1.7 K/mcL (0.0-1.3); Monocytes % 12.2 %; Neutrophils # 11.5 K/mcL (1.6-8.9); Nucleated Red Blood Cells 0.1 /100 WBC (0); Platelet Count 114 K/mcL (140-400); Red Blood Count 2.44 M/mcL (3.82-4.97); Red Cell Distribution Width 20.1 % (11.5-14.5); Segmented Neutrophils % 82.8 %; White Blood Count 13.8 K/mcL (4.3-11.1)
[2021-07-08 01:49] LABS: Alanine Aminotransferase 42 Units/L (7-52); Albumin 3.2 g/dL (3.5-5.7); Albumin/Globulin Ratio 1.1 (1.1-2.2); Alkaline Phosphatase 65 Units/L (34-104); Aspartate Amino Transferase 52 Units/L (13-39); BUN/Creatinine Ratio 60 (6-26); Bilirubin,Indirect 1.4 mg/dL (0.0-1.0); Bilirubin,Total 2.4 mg/dL (0.3-1.0); Blood Urea Nitrogen 52 mg/dL (8-23); Calcium 10.9 mg/dL (8.6-10.3); Carbon Dioxide 32 mEq/L (23-29); Chloride 109 mEq/L (98-107); Globulin 2.9 g/dL (2.4-3.5); Glucose 112 mg/dL (70-105); Osmolality,Calculated 323 (280-300); Potassium 3.4 mEq/L (3.5-5.1); Sodium 149 mEq/L (136-145); Total Protein 6.1 g/dL (6.4-8.9); eGFR For African Americans > 60 (> 60); eGFR For Non-African Americans > 60 (> 60)
[2021-07-08] MEDS: Cefepime HCl 2,000 MG in 0.9 % Sodium Chloride 10 ML IVP SCH ×2 (02:37→07:43)
[2021-07-08] MEDS: Metoclopramide 10 MG/2 ML VIAL IVP SCH ×3 (02:38→16:15)
[2021-07-08] MEDS: Ipratropium/Albuterol Neb 3 ML IH SCH ×4 (03:48→19:52)
[2021-07-08] MEDS: Pantoprazole 40 MG VIAL IVP SCH ×2 (05:04→16:15)
[2021-07-08] MEDS: Furosemide 20 MG/2 ML VIAL IVP SCH ×2 (07:42→16:15)
[2021-07-08] MEDS: Lactulose Oral Soln 20 GM/30 ML UDC PO SCH ×3 (07:42→21:36)
[2021-07-08] MEDS: MethylPREDNISolone 40 MG/ML VIAL IVP SCH (07:42)
[2021-07-08] MEDS: Chlorhexidine Rinse 15 ML MOUTHWASH MM SCH ×2 (07:42→21:36)
[2021-07-08] MEDS ORDERED: Potassium Chloride Elixir 20 MEQ/15 ML UDC PO ONE (08:20)
[2021-07-08] MEDS ORDERED: *HR* OxyCODONE Immed Rel 5 MG TABLET PO PRN (09:33)
[2021-07-08] MEDS ORDERED: Perflutren Lipid Microsphere 1.3 ML in 0.9 % Sodium Chloride 8.7 ML IVP PRN (13:58)
[2021-07-08 15:19] LABS: Bacteria,Urine Few per hpf (None-Few); Bilirubin,Urine Negative (Negative); Blood,Urine Moderate (Negative); Clarity,Urine Turbid (Clear); Color,Urine Yellow (Yellow); Glucose,Urine (UA) Normal (Normal); Hyaline Casts,Urine Moderate per lpf (None Seen); Ketones,Urine Trace mg/dL (Negative); Leukocyte Esterase,Urine Trace (Negative); Mucus,Urine Few per lpf (None-Few); Nitrite,Urine Negative (Negative); Protein,Urine 70 mg/dL (Neg-Trace); Specific Gravity,Urine 1.027 (1.010-1.025); Squamous Epithelial Cell,Urine Few per hpf (None-Few); Urobilinogen,Urine Normal (Normal); WBC,Urine 15-30 per hpf (0-3)
[2021-07-08] MEDS ORDERED: Piperacillin/Tazobactam 3.375 GM in 0.9 % Sodium Chloride Mini Bag 100 ML IVPB SCH (16:00)
[2021-07-08] MEDS: Piperacillin/Tazobactam 3.375 GM in 0.9 % Sodium Chloride Mini Bag 100 ML IVPB SCH (16:14)
[2021-07-09 00:45] LABS: Basophils % 0.1 %; Hematocrit 25.1 % (35.3-44.9); Hemoglobin 7.9 g/dL (11.5-15.4); Immature Granulocytes % 0.6 % (0-4); Lymphocytes # 0.7 K/mcL (0.6-4.6); Lymphocytes % 3.6 %; Mean Corpuscular HGB Conc 31.5 g/dL (31.6-35.5); Mean Corpuscular Hemoglobin 33.6 pg (28.0-33.3); Mean Corpuscular Volume 106.8 fL (83.0-100.0); Mean Platelet Volume 12.8 fL (9.4-12.4); Monocytes # 2.1 K/mcL (0.0-1.3); Monocytes % 10.3 %; Neutrophils # 17.2 K/mcL (1.6-8.9); Nucleated Red Blood Cells 0.3 /100 WBC (0); Platelet Count 131 K/mcL (140-400); Red Blood Count 2.35 M/mcL (3.82-4.97); Red Cell Distribution Width 21.2 % (11.5-14.5); Segmented Neutrophils % 85.4 %; White Blood Count 20.2 K/mcL (4.3-11.1)
[2021-07-09 00:56] LABS: VBG HCO3 32 mEq/L (21-27); VBG PCO2 40 mmHg (41-51); VBG PH 7.52 pH Units (7.32-7.42); VBG PO2 83 mmHg (25-50)
[2021-07-09] MEDS: Piperacillin/Tazobactam 3.375 GM in 0.9 % Sodium Chloride Mini Bag 100 ML IVPB SCH ×3 (00:58→16:47)
[2021-07-09] MEDS: Insulin LISPRO 300 UNITS/3 ML VIAL SUBQ SCH ×6 (02:36→21:18)
[2021-07-09] MEDS: Metoclopramide 10 MG/2 ML VIAL IVP SCH ×2 (02:57→08:08)
[2021-07-09 03:20] LABS: Alanine Aminotransferase 49 Units/L (7-52); Albumin 3.3 g/dL (3.5-5.7); Albumin/Globulin Ratio 1.1 (1.1-2.2); Alkaline Phosphatase 70 Units/L (34-104); Aspartate Amino Transferase 48 Units/L (13-39); BUN/Creatinine Ratio 59 (6-26); Bilirubin,Indirect 1.7 mg/dL (0.0-1.0); Bilirubin,Total 2.7 mg/dL (0.3-1.0); Blood Urea Nitrogen 55 mg/dL (8-23); Calcium 10.8 mg/dL (8.6-10.3); Carbon Dioxide 32 mEq/L (23-29); Chloride 112 mEq/L (98-107); Glucose 137 mg/dL (70-105); Magnesium 2.1 mg/dL (1.6-2.6); Osmolality,Calculated 329 (280-300); Potassium 3.8 mEq/L (3.5-5.1); Sodium 151 mEq/L (136-145); Total Protein 6.3 g/dL (6.4-8.9); eGFR For African Americans > 60 (> 60); eGFR For Non-African Americans > 60 (> 60)
[2021-07-09] MEDS: Ipratropium/Albuterol Neb 3 ML IH SCH ×4 (03:36→19:48)
[2021-07-09] MEDS: Pantoprazole 40 MG VIAL IVP SCH ×2 (06:27→16:47)
[2021-07-09] MEDS: MethylPREDNISolone 40 MG/ML VIAL IVP SCH (07:50)
[2021-07-09] MEDS: Lactulose Oral Soln 20 GM/30 ML UDC PO SCH (07:52)
[2021-07-09] MEDS: Chlorhexidine Rinse 15 ML MOUTHWASH MM SCH ×2 (07:52→21:19)
[2021-07-09] MEDS: Furosemide 20 MG/2 ML VIAL IVP SCH (07:52)
[2021-07-09] MEDS ORDERED: Metoclopramide 10 MG/2 ML VIAL IVP PRN (09:56)
[2021-07-09] MEDS ORDERED: D5% in Water 1,000 ML IVC SCH (10:00)
[2021-07-09 12:25] LABS: Phosphorous 2.1 mg/dL (2.7-4.5)
[2021-07-09] MEDS ORDERED: Lactulose Oral Soln 20 GM/30 ML UDC PO SCH (15:00)
[2021-07-09] MEDS ORDERED: Lactulose 200 GM, Sodium Chloride IRRigation 700 ML RC ONE (15:00)
[2021-07-10] MEDS: Piperacillin/Tazobactam 3.375 GM in 0.9 % Sodium Chloride Mini Bag 100 ML IVPB SCH ×2 (00:52→09:04)
[2021-07-10] MEDS: Insulin LISPRO 300 UNITS/3 ML VIAL SUBQ SCH ×4 (01:11→14:27)
[2021-07-10] MEDS: Ipratropium/Albuterol Neb 3 ML IH SCH ×2 (03:51→08:04)
[2021-07-10 05:19] LABS: Basophils % 0.1 %; Hemoglobin 7.5 g/dL (11.5-15.4); Lymphocytes % 4.5 %
[2021-07-10 05:21] LABS: Immature Granulocytes % 1.5 % (0-4); Immature Platelets 17.1 % (1.1-6.1); Mean Corpuscular HGB Conc 31.3 g/dL (31.6-35.5); Mean Corpuscular Hemoglobin 34.2 pg (28.0-33.3); Mean Corpuscular Volume 109.6 fL (83.0-100.0); Mean Platelet Volume 13.3 fL (9.4-12.4); Monocytes # 1.9 K/mcL (0.0-1.3); Monocytes % 8.7 %; Neutrophils # 18.9 K/mcL (1.6-8.9); Nucleated Red Blood Cells 1.8 /100 WBC (0); Platelet Count 109 K/mcL (140-400); Red Blood Count 2.19 M/mcL (3.82-4.97); Red Cell Distribution Width 22.4 % (11.5-14.5); Segmented Neutrophils % 85.2 %; White Blood Count 22.2 K/mcL (4.3-11.1)
[2021-07-10] MEDS: Pantoprazole 40 MG VIAL IVP SCH (05:23)
[2021-07-10 05:28] LABS: Alanine Aminotransferase 81 Units/L (7-52); Albumin 3.2 g/dL (3.5-5.7); Albumin/Globulin Ratio 1.1 (1.1-2.2); Alkaline Phosphatase 71 Units/L (34-104); Aspartate Amino Transferase 87 Units/L (13-39); BUN/Creatinine Ratio 62 (6-26); Bilirubin,Total 3.8 mg/dL (0.3-1.0); Blood Urea Nitrogen 64 mg/dL (8-23); Calcium 10.7 mg/dL (8.6-10.3); Carbon Dioxide 30 mEq/L (23-29); Chloride 111 mEq/L (98-107); Globulin 2.9 g/dL (2.4-3.5); Glucose 125 mg/dL (70-105); Osmolality,Calculated 330 (280-300); Potassium 3.7 mEq/L (3.5-5.1); Sodium 150 mEq/L (136-145); Total Protein 6.1 g/dL (6.4-8.9); eGFR For African Americans > 60 (> 60); eGFR For Non-African Americans 53 (> 60)
[2021-07-10] MEDS: Chlorhexidine Rinse 15 ML MOUTHWASH MM SCH (09:08)
[2021-07-10] MEDS ORDERED: D5% in Water 1,000 ML IVC SCH (10:45)
[2021-07-10 11:21] LABS: ABG Base Excess 7 mEq/L (-2 to 3); ABG HCO3 29 mEq/L (21-27); ABG Oxygen Saturation 91 % (95-98); ABG PCO2 30 mmHg (35-45); ABG PO2 49 mmHg (85-104); ABG TCO2 30 mEq/L (20-26); Blood Gas Pressure Support 12 cm H2O
[2021-07-10 13:01] VITALS: TEMP 98.2
[2021-07-10 13:26] VITALS: BP 90/61; PULSE 132; O2SAT 85
[2021-07-10] MEDS ORDERED: Morphine Sulfate 2 MG/ML SYRINGE IVP PRN (13:32)
[2021-07-10] MEDS ORDERED: *HR* LORazepam 2 MG/ML VIAL IVP PRN (13:32)
[2021-07-10] MEDS ORDERED: Lactulose 200 GM, Sodium Chloride IRRigation 700 ML RC ONE (14:00)
[2021-07-10] MEDS ORDERED: Ipratropium/Albuterol Neb 3 ML IH PRN (14:14)
== END 2021-07-10 15:45 | disposition expired | DRG 432 ==
LOC: EMEROOARM 16:41 → 3ANU 16:41 → SUATTDRO 19:49 → 3ANU 20:25 → 2NENU 06-20 03:57 → 2NNU 06-20 06:28 → ICNU 06-21 23:31 → SUATTDRO 06-22 10:31 → 2ANU 07-07 16:49
PROVIDERS: ADMIT Internal Medicine; ATTEND General Practice